=== PATIENT | male | born 1960 | race Caucasian/White ===

== ENCOUNTER 2021-12-17 10:29 | Emergency (ER) | payer BC, SELFPAY ==
[2021-12-17 10:38] VITALS: BP 90/59; PULSE 81; RESP 22; TEMP 36.2; O2SAT 94
[2021-12-17 10:41] VITALS: BP 90/59; PULSE 81; RESP 22; TEMP 36.2; O2SAT 94; BMI 31.8
[2021-12-17 11:00] VITALS: BP 92/57; PULSE 84; RESP 18; O2SAT 94
--- NOTE | 2021-12-17 11:10 | ED.GIBLEED ---
HPI - GI Bleed General Chief complaint: GI Bleed Stated complaint: Rectal bleeding Time Seen by Provider: 12/17/21 10:57 Source: patient and family Mode of arrival: ambulatory Limitations: no limitations History of Present Illness HPI Narrative: Christiano is a 61yo male with complicated PMH that presents with gross, bright red blood per rectum x 3 days, moderate volume. The patient also reports history of bloating and gas, but he denies nausea, vomiting, or known diarrhea. The patient recently reports episodes of constipation after which he noted the bloody stools. He is concerned of possible rectal tear. He has no history of hemorrhoids, anal fissure, or previous rectal tears. The patient is on blood thinners: aspirin and warfarin. The patient is able to tolerate PO intake. The patient reports eating has no affect on symptoms. The patient states that he has had no known sick contacts, no recent changes in diet, no travel. Patient denies fever, chills, or sweats. He reports no significant pain associated with bowel movements or in his abdomen. He denies burning with urination, urinary frequency, or flank pain. He denies chest pain or shortness of breath. He denies dizziness, weakness, or near-syncope. He has taken no medications prior to arrival. Related Data Home Medications Medication Instructions Recorded Confirmed allopurinol 100 mg tablet 100 mg PO DAILY 12/17/21 12/17/21 losartan 100 mg tablet (Cozaar) 100 mg PO DAILY 12/17/21 12/17/21 pregabalin 300 mg capsule 300 mg PO TID 12/17/21 12/17/21 Review of Systems Const: Denies: fever, chills, fatigue or malaise ENMT: Denies: throat pain, difficulty swallowing or vertigo Cardio: Denies: chest pain or shortness of breath with exertion Resp: Denies: shortness of breath or cough GI: Reports: bloating, rectal itching and blood in stool; Denies: abdominal pain, nausea, vomiting, heartburn, diarrhea, constipation, belching, excessive passing of gas, difficulty swallowing, feeling full early, change in bowel habits, painful bowel movements or rectal pain : Denies: painful urination, urinary frequency, urinary urgency or blood in urine Neuro: Denies: headache, dizziness or vertigo Endo: Denies: excessive urination or fatigue Sy/Lymph: Denies: easy bruising or easy bleeding Exam Const: Vital Signs, click to edit/add: Vital Signs - 24 hr 12/17/21 10:41 Temperature 97.1 F L Pulse Rate [Right Pulse Oximeter] 81 Respiratory Rate 22 Blood Pressure [Ri ght Upper Arm] 90/59 L Pulse Oximetry 94 Oxygen Delivery Me thod Room Air Documenting provider has reviewed patient's vital signs: yes Common normals: no apparent distress, oriented x3, no limitations, healthy appearing, alert and well nourished General appearance: cooperative, comfortable and well developed; not in distress Orientation/consciousness: Yes awake, Yes oriented to person, Yes oriented to place and Yes oriented to time HENMT: Common normals: normocephalic and head/scalp atraumatic Head and scalp: normocephalic and atraumatic Face and sinus: normal facial exam (limited by masking) Eye: Common normals: EOMs intact bilaterally General eye: normal appearance of both eyes Resp: Common normals: normal respiratory effort, no retractions, no use of accessory muscles and clear to auscultation bilaterally Effort & inspection: able to speak in complete sentences Auscultation: clear to auscultation bilaterally Cardio: Common normals: regular rate, regular rhythm, S1 normal heart sound, S2 normal heart sound, no gallops, no clicks and no murmurs Rate: regular rate Rhythm: regular rhythm Heart sounds: S1 normal and S2 normal GI: Common normals: Normal to inspection, nondistended, normoactive bowel sounds present, soft to palpation and non-tender Palpation: soft and tender Rectal Exam - Male: normal sphincter tone, prostate normal and heme positive stool gross blood; no hemorrhoids, no fecal impaction and no anal fissure(s) Extremity: Common normals: normal to inspection, full ROM and no clubbing, cyanosis or edema Neuro: Common normals: oriented x3, CN's II-XII intact bilaterally, moves all extremities, no focal motor deficits and no sensory deficits noted Sensorium/orientation: awake, alert, oriented to person, oriented to place and oriented to time Gait (neuro): normal gait Sensory exam: double simultaneous stimulation for sensation normal Motor exam: no movement abnormalities noted Psych: Common normals: mental status grossly normal, thought process normal and speech normal Appearance: grossly normal Attitude: calm Speech: normal speech Thought process: normal thought process Thought content: normal thought content Attention/concentration: attention grossly intact Memory/cognition: memory grossly intact Insight: insight good Judgement: judgment good Skin: Common normals: no rashes or lesions noted General skin exam: no rashes or lesions noted Course Course Hospital Course: Christiano presented to the ED and was evaluated for presence of GI bleeding/BRBPR. He had no additional symptoms value was in the emergency department. His laboratory studies were reviewed. Plan for diagnostic colonoscopy was discussed. Patient will call his primary care provider to ensure follow-up. If he is unable to be seen within the next week for diagnostic colonoscopy, he will have hemoglobin rechecked in the outpatient setting by his primary care physician. Reevaluation(s) Reevaluation #1: Patient reports no significant symptoms with in ED. Patient's vital signs have remained stable with hypotension noted, which is normal for patient. The results were discussed, and the patient verbalized understanding. Reasons for follow-up or return were discussed. Time: 12:29 Vital Signs Vital signs: Initial Vital Signs Temperature 97.1 F L 12/17/21 10:41 Temperature Source Temporal Artery Scan 12/17/21 10:41 Pulse Rate 81 12/17/21 10:41 Respiratory Rate 22 12/17/21 10:41 Blood Pressure 90/59 L 12/17/21 10:41 Blood Pressure Mean 69 12/17/21 10:41 Blood Pressure Position Sitting 12/17/21 10:41 Pulse Oximetry 94 12/17/21 10:41 Oxygen Delivery Method 12/17/21 10:41 Vital Signs Temperature 97.1 F L 12/17/21 10:41 Pulse Rate 81 12/17/21 10:41 Respiratory Rate 22 12/17/21 10:41 Blood Pressure 90/59 L 12/17/21 10:41 Pulse Oximetry 94 12/17/21 10:41 Oxygen Delivery Method 12/17/21 10:41 Temperature 97.1 F L 12/17/21 10:41 Pulse Rate 81 12/17/21 10:41 Respiratory Rate 22 12/17/21 10:41 Blood Pressure 90/59 L 12/17/21 10:41 Pulse Oximetry 94 12/17/21 10:41 Oxygen Delivery Method 12/17/21 10:41 MDM - GI Bleed MDM Narrative Medical decision making narrative: During the evaluation of this patient consider multiple differential diagnosis considerations. The life-threatening differential diagnoses considered include: mesenteric ischemia, bowel perforation, volvulus, and bowel obstruction. Other differential diagnoses include but are not limited to: inflammatory bowel disease, gastritis, GERD, diverticulitis, peptic ulcer disease, GI bleed, hemorrhoids, anal trauma/injury, as well as the other etiologies. Medical Records Attestation: I reviewed the patient's medical records. Lab Data Attestation: I reviewed the patient's lab results. Labs: Lab Results 12/17/21 12/17/21 12/17/21 Range/Units 11:17 11:35 11:35 WBC 8.05 (4.50-11.00) K/uL RBC 3.79 L (4.30-5.90) m/uL Hgb 11.4 L (13.5-17.5) gm/dL Hct 35.2 L (37.0-53.0) % MCV 93 (80-100) fL MCH 30 (26-34) pg MCHC 32 (32-36) gm/dL RDW Coeff of [place] 16.5 H (11.5-15.5) % Plt Count 181 (140-440) K/uL Neut % (Auto) 80.1 H (42.0-72.0) % Lymph % (Auto) 7.3 L (20-44) % Nuckolls % (Auto) 9.3 (0.0-11.0) % Eos % (Auto) 2.5 (0.0-7.0) % Baso % (Auto) 0.2 (0.0-3.0) % Neut # (Auto) 6.40 (1.7-7.0) K/uL Lymph # (Auto) 0.60 L (0.90-2.90) K/uL [place]olls # (Auto) 0.70 (0.00-0.90) K/UL Eos # (Auto) 0.20 (0.00-0.50) K/uL Baso # (Auto) 0.02 (0.00-0.30) K/uL Abs Immat Gran (auto) 0.05 (0.00-0.30) K/uL INR 2.63 H (0.91-1.10) APTT 39 H (23-33) Seconds Lactate 1.4 (0.5-1.9) mmol/L Discharge Plan Discharge Clinical Impression: Lower gastrointestinal hemorrhage Condition: Stable Instructions: Gastrointestinal Bleeding (ED) Additional Instructions: Thank you for choosing [facility] for your care today. Drink plenty of water and consider using electrolyte replacement like Gatorade or substitute. Add probiotic of choice - Culturelle, [facility], or Kefir - or substitute. Eat a bland diet and advance as tolerated. Diet should include bananas, rice, applesauce, and toast (BRAT diet) and other bland foods. Slowly advance diet as tolerated. Consider possible dietary restrictions regarding lactose and/or gluten for persistent symptoms. Consider the use of a daily coconut oil supplement, apple cider vinegar supplement, or magnesium oxide. You may consider MiraLax once daily per package directions until having regular stools. Decrease to 1/2 capful daily or every other day as needed for regular, soft bowel movements. Consider stimulant laxatives, if no success with previously discussed methods, stimulant laxative should not be used regularly to assist with bowel habits. Lastly, you may consider 4 oz of prune juice coffee mixed with 1 pass of butter warmed in the microwave to encourage bowels to move. If no bowel movement is noted within 3 days, return for re-evaluation and consideration of imaging or additional workup as indicated. You will need further evaluation and treatment including evaluation with general surgery. I recommend calling primary care for follow-up in the next 3-5 days for reevaluation of symptoms and to assist with scheduling diagnostic colonoscopy. If new or worsening symptoms develop or you have any concerns in the meantime, please call your primary care clinic or return to the ER for re-evaluation. Activity Level: Activity as Tolerated and No strenuous activity Discharge Diet: Heart Healthy (2 gm sodium, low fat) Diet Detail: Begin with bland, liquid diet with advance as tolerated. Prescriptions: No Action allopurinol 100 mg tablet 100 mg PO DAILY Label Comments: TAKE 1 TABLET BY MOUTH ONCE DAILY pregabalin 300 mg capsule 300 mg PO TID Label Comments: TAKE 1 CAPSULE BY MOUTH THREE TIMES DAILY losartan [Cozaar] 100 mg tablet 100 mg PO DAILY Follow Up/Referrals: Genny Casarez MD [Staff Physician] - Yair Benson MD [Staff Physician] - 7 Days (Needs diagnostic colonoscopy for GI bleeding) [facility]: [facility] Info Instructions
[2021-12-17 11:30] VITALS: BP 92/46; PULSE 81; RESP 22; TEMP 36.2; O2SAT 94
[2021-12-17 12:00] VITALS: BP 96/51; PULSE 81; RESP 22; O2SAT 94
[2021-12-17 12:03] LABS: Basophils Absolute Auto 0.02 K/uL (0.00-0.30); Basophils Percent Auto 0.2 % (0.0-3.0); Eosinophils Percent Auto 2.5 % (0.0-7.0); Hematocrit 35.2 % (37.0-53.0); Hemoglobin* 11.4 gm/dL (13.5-17.5); Immature Granulocytes Abs Auto 0.05 K/uL (0.00-0.30); Lymphocytes Percent Auto 7.3 % (20-44); Mean Corpuscular HGB Conc 32 gm/dL (32-36); Mean Corpuscular Hemoglobin 30 pg (26-34); Mean Corpuscular Volume 93 fL (80-100); Monocytes Percent Auto 9.3 % (0.0-11.0); Neutrophils Percent Auto 80.1 % (42.0-72.0); Platelet Count* 181 K/uL (140-440); RDW Coefficient of Variation % 16.5 % (11.5-15.5); Red Blood Count 3.79 m/uL (4.30-5.90); White Blood Count* 8.05 K/uL (4.50-11.00)
[2021-12-17 12:04] LABS: Slide Review Reflex No
[2021-12-17 12:09] LABS: Lactate* 1.4 mmol/L (0.5-1.9)
[2021-12-17 12:19] LABS: INR 2.63 (0.91-1.10); Partial Thromboplastin Time* 39 Seconds (23-33); Prothrombin Time 28.4 Seconds
[2021-12-17 12:26] LABS: Albumin* 3.7 g/dL (3.3-5.0); Chloride* 108 mmol/L (96-114)
[2021-12-17 12:27] LABS: Potassium* 4.7 mmol/L (3.6-5.1); Sodium* 140 mmol/L (135-149)
[2021-12-17 12:29] LABS: Alkaline Phosphatase* 92 U/L (40-150); Aspartate Amino Transferase* 26 U/L (12-35); Bilirubin Total* 0.8 mg/dL (0.1-1.5); Blood Urea Nitrogen* 51 mg/dL (7-30); Carbon Dioxide* 24 mmol/L (20-32); Est. Creatinine Clearance* 51.41; Estimated Glomerular Filt Rate 38 ml/min; Total Protein* 6.7 g/dL (6.0-8.3)
[2021-12-17 12:30] VITALS: BP 86/56; PULSE 81; RESP 22; O2SAT 94
[2021-12-17 12:30] LABS: Alanine Aminotransferase* 20 U/L (4-50); Calcium* 8.8 mg/dL (8.4-10.6); Glucose* 118 mg/dL (60-115)
== END 2021-12-17 12:52 | disposition home or self-care (01) ==
PROVIDERS: Emergency Provider Family Medicine; PCP Family Medicine
DX: K92.2 Gastrointestinal hemorrhage, unspecified (principal)
CPT/HCPCS: 36415; 80053; 83605; 85025; 85610; 85730; 99284

== ENCOUNTER 2022-04-21 09:31 | Outpatient (CLI) | payer BC, SELFPAY ==
[2022-04-21 11:55] LABS: Albumin* 4.7 g/dL (3.3-5.0); Chloride* 106 mmol/L (96-114); Potassium* 4.8 mmol/L (3.6-5.1); Sodium* 140 mmol/L (135-149)
[2022-04-21 11:59] LABS: Blood Urea Nitrogen* 47 mg/dL (7-30); Calcium* 9.3 mg/dL (8.4-10.6); Carbon Dioxide* 27 mmol/L (20-32); Glucose* 109 mg/dL (60-115)
[2022-04-21 12:02] LABS: C Reactive Protein* 0.7 mg/dL (0.5-1.0)
[2022-04-21 12:14] LABS: Creatinine* 2.1 mg/dL (0.5-1.5)
[2022-04-21 12:15] LABS: Estimated Glomerular Filt Rate 36 ml/min
[2022-04-22 21:39] LABS: Prealbumin 28.2 mg/dL (20.0-40.0)
== END 2022-04-21 09:32 | disposition home or self-care (01) ==
LOC: WOUND 09:31
PROVIDERS: PCP Family Medicine; Visit Provider Physician Assistant Surgical
DX: E11.621 Type 2 diabetes mellitus with foot ulcer (principal); L97.422 Non-pressure chronic ulcer of left heel and midfoot with fat layer exposed; S80.212A Abrasion, left knee, initial encounter
CPT/HCPCS: 11042; 36415; 80048; 82040; 83036; 84134; 85651; 86140; 99213

== ENCOUNTER 2022-05-05 09:42 | Outpatient (CLI) | payer BC, SELFPAY | END 2022-05-05 09:43 | disposition home or self-care (01) | LOC: WOUND 09:42 | PROVIDERS: PCP Family Medicine; Visit Provider Physician Assistant Surgical | DX: E11.621 Type 2 diabetes mellitus with foot ulcer (principal); L97.422 Non-pressure chronic ulcer of left heel and midfoot with fat layer exposed | CPT/HCPCS: 11043 ==

== ENCOUNTER 2022-05-12 09:49 | Outpatient (CLI) | payer BC, SELFPAY | END 2022-05-12 09:50 | disposition home or self-care (01) | LOC: WOUND 09:49 | PROVIDERS: PCP Family Medicine; Visit Provider Physician Assistant Surgical | DX: E11.621 Type 2 diabetes mellitus with foot ulcer (principal); L97.525 Non-pressure chronic ulcer of other part of left foot with muscle involvement without evidence of necrosis; L60.8 Other nail disorders | CPT/HCPCS: 11043; 11719 ==

== ENCOUNTER 2022-12-27 12:08 | Emergency (ER) | payer BC, SELFPAY ==
[2022-12-27] VITALS (106 sets, daily range): BP systolic 69–137; BP diastolic 37–99; PULSE 53–215; RESP 21–32; TEMP 36.7–37.1; O2SAT 82–100; BMI 43.9
--- NOTE | 2022-12-27 12:29 | ED_ITS ---
HPI - Fever General Time Seen by Provider: 12:29 Date Seen: 12/27/22 Chief Complaint: Fever Stated Complaint: Fever, fell Time Seen by Provider: 12/27/22 12:20 Source: patient, family and RN notes reviewed Mode of arrival: ambulatory Limitations: no limitations History of Present Illness HPI Narrative: Patient is a 62-year-old male coming in with reported fever of 102.9 taken tympanically at home. He called his stating he was not feeling good and felt feverish. Patient admits overnight he was having increasing difficulty breathing, could not wear CPAP. Did start to have a bit of a cough this morning. Does have some nausea but no vomiting. No abdominal pain, no diarrhea, no urinary symptoms. His was wondering possibly about COVID. He does have a history of congestive heart failure in they have been increasing his torsemide this past week. He is chronically short of breath but is much worse today. Is being seen in the wound clinic for an ulcer on his left foot, does not feel increased pain but admits he would not necessarily note it because of his peripheral neuropathy. Placed a bandage on the wound today and did not have concerns about it. Denies any chest discomfort, is not having any pain anywhere. MD elicited complaint: fever Treatments prior to arrival fever: none Related Data Home Medications Medication Instructions Recorded Confirmed allopurinol 100 mg tablet 100 mg PO DAILY 12/17/21 12/27/22 losartan 100 mg tablet (Cozaar) 100 mg PO DAILY 12/17/21 12/27/22 pregabalin 300 mg capsule 300 mg PO TID 12/17/21 12/27/22 amiodarone 200 mg tablet 200 mg PO DAILY 12/27/22 12/27/22 atorvastatin 40 mg tablet 40 mg PO DAILY 12/27/22 12/27/22 bupropion HCl 150 mg 24 hr tablet, 150 mg PO DAILY 12/27/22 12/27/22 extended release cefadroxil 500 mg capsule 500 mg PO BID 12/27/22 12/27/22 metoprolol succinate 100 mg 100 mg PO DAILY 12/27/22 12/27/22 tablet,extended release 24 hr metoprolol succinate 50 mg 50 mg PO DAILY 12/27/22 12/27/22 tablet,extended release 24 hr spironolactone 25 mg tablet 12.5 mg PO QAM 12/27/22 12/27/22 venlafaxine 75 mg capsule,extended 75 mg PO DAILY 12/27/22 12/27/22 release 24 hr warfarin 5 mg tablet PO 12/27/22 Previous Rx's Medication Instructions Recorded torsemide 20 mg tablet 80 mg (4 x 20 mg) PO QDAY #360 tabs 01/24/22 Allergies Allergy/AdvReac Type Severity Reaction Status Date / Time No Known Drug Allergies Allergy Verified 12/27/22 12:22 Review of Systems Status of ROS Reports: 6 or more systems reviewed and unremarkable except as noted in History and below [facility] Medical History CKD (chronic kidney disease) stage 3, GFR 30-59 ml/min ?N18.30 - Chronic kidney disease, stage 3 unspecified (ICD-10) Biventricular CHF (congestive heart failure) ?I50.82 - Biventricular heart failure (ICD-10) Pulmonary HTN ?I27.20 - Pulmonary hypertension, unspecified (ICD-10) MDD (major depressive disorder) ?F32.9 - Major depressive disorder, single episode, unspecified (ICD-10) ELVIS (obstructive sleep apnea) ?G47.33 - Obstructive sleep apnea (adult) (pediatric) (ICD-10) CAD (coronary artery disease) ?I25.10 - Atherosclerotic heart disease of [place] coronary artery without angina pectoris (ICD-10) Social History Smoking Status: Never smoker Do you use any of these nicotine containing products: None Second hand tobacco smoke exposure: No How often do you have a drink containing alcohol: never How often do you have six or more drinks on one occasion: Never AUDIT-C Alcohol total score: 0 Non-prescribed substance use: denies use service: No Exam Const Vital Signs, click to edit/add: Vital Signs - 24 hr 12/27/22 12:12 12/27/22 12:18 12/27/22 12:25 Temperature 98.8 F Pulse Rate Pulse Rate [Apical] 88 Pulse Rate [Right Pulse Oximeter] 82 88 88 Respiratory Rate 32 H Blood Pressure Blood Pressure [Right Upper Arm] 95/60 92/42 L 95/60 Pulse Oximetry 82 L Oxygen Delivery Method Room Air Oxygen Flow Rate 12/27/22 12:30 12/27/22 12:45 12/27/22 12:46 Temperature Pulse Rate Pulse Rate [Apical] Pulse Rate [Right Pulse Oximeter] 89 89 87 Respiratory Rate Blood Pressure Blood Pressure [Right Upper Arm] 81/43 L 81/43 L 78/40 L Pulse Oximetry Oxygen Delivery Method Oxygen Flow Rate 12/27/22 12:49 12/27/22 13:09 12/27/22 13:10 Temperature Pulse Rate 82 89 Pulse Rate [Apical] Pulse Rate [Right Pulse Oximeter] Respiratory Rate Blood Pressure 73/46 L Blood Pressure [Right Upper Arm] Pulse Oximetry 95 95 95 Oxygen Delivery Method Nasal Cannula Oxygen Flow Rate 4 12/27/22 13:15 12/27/22 13:17 12/27/22 13:30 Temperature Pulse Rate 101 H 95 102 H Pulse Rate [Apical] Pulse Rate [Right Pulse Oximeter] Respiratory Rate Blood Pressure 76/44 L Blood Pressure [Right Upper Arm] Pulse Oximetry 95 95 95 Oxygen Delivery Method Nasal Cannula Nasal Cannula Oxygen Flow Rate 4 4 12/27/22 13:38 12/27/22 13:39 12/27/22 13:42 Temperature 98.1 F Pulse Rate 53 L 83 94 Pulse Rate [Apical] Pulse Rate [Right Pulse Oximeter] Respiratory Rate Blood Pressure 95/49 L 122/75 Blood Pressure [Right Upper Arm] Pulse Oximetry 95 96 92 Oxygen Delivery Method Oxygen Flow Rate 12/27/22 13:45 12/27/22 13:47 12/27/22 13:52 Temperature Pulse Rate 108 H 95 96 Pulse Rate [Apical] Pulse Rate [Right Pulse Oximeter] Respiratory Rate 25 H 22 Blood Pressure 123/86 131/93 H Blood Pressure [Right Upper Arm] Pulse Oximetry 88 87 L 87 L Oxygen Delivery Method Oxygen Flow Rate 12/27/22 13:57 12/27/22 14:00 12/27/22 14:02 Temperature Pulse Rate 90 100 110 H Pulse Rate [Apical] Pulse Rate [Right Pulse Oximeter] Respiratory Rate 26 H 26 H 22 Blood Pressure 93/66 91/52 L Blood Pressure [Right Upper Arm] Pulse Oximetry 86 L 87 L 97 Oxygen Delivery Method Oxygen Flow Rate 12/27/22 14:07 12/27/22 14:12 12/27/22 14:15 Temperature Pulse Rate 103 H 100 104 H Pulse Rate [Apical] Pulse Rate [Right Pulse Oximeter] Respiratory Rate 25 H 26 H 25 H Blood Pressure 82/49 L 69/57 L 81/54 L Blood Pressure [Right Upper Arm] Pulse Oximetry 98 98 96 Oxygen Delivery Method Oxygen Flow Rate 12/27/22 14:16 12/27/22 14:21 12/27/22 14:22 Temperature Pulse Rate 104 H 141 H 96 Pulse Rate [Apical] Pulse Rate [Right Pulse Oximeter] Respiratory Rate 24 27 H 22 Blood Pressure 105/72 Blood Pressure [Right Upper Arm] Pulse Oximetry 96 89 97 Oxygen Delivery Method Oxygen Flow Rate 12/27/22 14:27 12/27/22 14:28 12/27/22 14:30 Temperature Pulse Rate 94 93 98 Pulse Rate [Apical] Pulse Rate [Right Pulse Oximeter] Respiratory Rate 27 H 27 H 22 Blood Pressure 119/86 Blood Pressure [Right Upper Arm] Pulse Oximetry 97 98 98 Oxygen Delivery Method Oxygen Flow Rate 12/27/22 14:32 12/27/22 14:36 12/27/22 14:37 Temperature Pulse Rate 95 93 96 Pulse Rate [Apical] Pulse Rate [Right Pulse Oximeter] Respiratory Rate 25 H 25 H 24 Blood Pressure 109/83 118/87 Blood Pressure [Right Upper Arm] Pulse Oximetry 98 98 99 Oxygen Delivery Method Oxygen Flow Rate 12/27/22 14:41 12/27/22 14:45 12/27/22 14:47 Temperature Pulse Rate 95 91 92 Pulse Rate [Apical] Pulse Rate [Right Pulse Oximeter] Respiratory Rate 23 24 21 Blood Pressure 133/83 119/77 Blood Pressure [Right Upper Arm] Pulse Oximetry 98 99 98 Oxygen Delivery Method OxyMask Oxygen Flow Rate 3 12/27/22 14:48 12/27/22 14:51 12/27/22 14:56 Temperature Pulse Rate 98 101 H 104 H Pulse Rate [Apical] Pulse Rate [Right Pulse Oximeter] Respiratory Rate 23 23 29 H Blood Pressure 113/75 109/80 Blood Pressure [Right Upper Arm] Pulse Oximetry 99 98 98 Oxygen Delivery Method Oxygen Flow Rate 12/27/22 15:00 12/27/22 15:01 12/27/22 15:07 Temperature Pulse Rate 103 H 100 100 Pulse Rate [Apical] Pulse Rate [Right Pulse Oximeter] Respiratory Rate 24 24 23 Blood Pressure 115/85 111/69 Blood Pressure [Right Upper Arm] Pulse Oximetry 98 99 96 Oxygen Delivery Method Oxygen Flow Rate 12/27/22 15:12 12/27/22 15:15 12/27/22 15:17 Temperature Pulse Rate 110 H 100 100 Pulse Rate [Apical] Pulse Rate [Right Pulse Oximeter] Respiratory Rate 21 27 H 24 Blood Pressure 128/89 113/72 Blood Pressure [Right Upper Arm] Pulse Oximetry 97 96 97 Oxygen Delivery Method Oxygen Flow Rate 12/27/22 15:32 12/27/22 15:34 12/27/22 15:36 Temperature Pulse Rate 85 100 110 H Pulse Rate [Apical] Pulse Rate [Right Pulse Oximeter] Respiratory Rate Blood Pressure 113/83 99/83 Blood Pressure [Right Upper Arm] Pulse Oximetry 93 95 95 Oxygen Delivery Method Oxygen Flow Rate 12/27/22 15:41 12/27/22 15:45 12/27/22 15:47 Temperature Pulse Rate 102 H 104 H 90 Pulse Rate [Apical] Pulse Rate [Right Pulse Oximeter] Respiratory Rate Blood Pressure 102/90 H 94/61 Blood Pressure [Right Upper Arm] Pulse Oximetry 96 95 96 Oxygen Delivery Method Oxygen Flow Rate 12/27/22 15:52 12/27/22 15:57 12/27/22 16:00 Temperature Pulse Rate 90 93 100 Pulse Rate [Apical] Pulse Rate [Right Pulse Oximeter] Respiratory Rate Blood Pressure 121/70 116/88 Blood Pressure [Right Upper Arm] Pulse Oximetry 97 97 97 Oxygen Delivery Method Oxygen Flow Rate 12/27/22 16:01 12/27/22 16:07 12/27/22 16:11 Temperature Pulse Rate 94 95 98 Pulse Rate [Apical] Pulse Rate [Right Pulse Oximeter] Respiratory Rate Blood Pressure 122/84 104/88 95/73 Blood Pressure [Right Upper Arm] Pulse Oximetry 96 97 96 Oxygen Delivery Method Oxygen Flow Rate 12/27/22 16:15 12/27/22 16:16 12/27/22 16:21 Temperature Pulse Rate 97 98 94 Pulse Rate [Apical] Pulse Rate [Right Pulse Oximeter] Respiratory Rate Blood Pressure 99/87 111/75 Blood Pressure [Right Upper Arm] Pulse Oximetry 97 98 97 Oxygen Delivery Method Oxygen Flow Rate 12/27/22 16:27 12/27/22 16:30 12/27/22 16:32 Temperature Pulse Rate 78 98 97 Pulse Rate [Apical] Pulse Rate [Right Pulse Oximeter] Respiratory Rate Blood Pressure 107/66 102/90 H Blood Pressure [Right Upper Arm] Pulse Oximetry 93 94 97 Oxygen Delivery Method Oxygen Flow Rate 12/27/22 16:37 12/27/22 16:42 12/27/22 16:45 Temperature Pulse Rate 99 101 H 103 H Pulse Rate [Apical] Pulse Rate [Right Pulse Oximeter] Respiratory Rate Blood Pressure 115/94 H 110/37 L Blood Pressure [Right Upper Arm] Pulse Oximetry 98 99 98 Oxygen Delivery Method Oxygen Flow Rate 12/27/22 16:47 Temperature Pulse Rate 99 Pulse Rate [Apical] Pulse Rate [Right Pulse Oximeter] Respiratory Rate Blood Pressure 126/55 L Blood Pressure [Right Upper Arm] Pulse Oximetry 98 Oxygen Delivery Method Oxygen Flow Rate 62-year-old male seen exam room 1, is on oxygen nasal cannula at this time, was 82% on arrival. Note patient is not on home oxygen. He looks pale, is diaphoretic. notes blood pressure usually is in the low 100 range, he is 92 systolic when I initially see him. Is able to speak in short phrases, does look mildly tachypneic. Sclera clear, conjugate gaze. Symmetrical facial function. Neck thick but no cervical adenopathy noted, difficult to see jugular venous distension. Maybe diminished breath sounds right base but otherwise clear without crackles, not coughing when I am with him. Heart sounds are distant, do not hear any murmur. Abdomen is protuberant but does not seem distended, nontender, no organomegaly. Has some chronic venous stasis changes lower extremities. Did visualize the wound along the left lateral plantar foot, no evidence of acute infection that I see at this time. Documenting provider has reviewed patient's vital signs: yes Course Course Hospital Course: With fever, did discuss with them obviously infectious etiology is our concern. COVID or other pulmonary infections including pneumonia are certainly foremost for considerations. Patient may meet criteria for sepsis, will initiate a L of IV fluids over 2 hours, he is cautioned that this could precipitate CHF and certainly needs to let us know if he has increasing sense of difficulty breathing or shortness of breath. Will start with a portable chest x-ray, full complement of labs including blood cultures. He will be watched closely. Will have him on cardiac monitoring and pulse oximetry, obtain baseline EKG as well. Reevaluation(s) Time of Reevaluation #1: 12:50 Reevaluation #1: Nursing staff reporting blood pressure into the 70s systolic. Will increase the normal saline to 1 L over 1 hour instead of 2 hours, very closely follow. Initiate antibiotics as soon as blood work has been done and attempt to get the portable chest x-ray done stat. Time of Reevaluation #2: 13:18 Reevaluation #2: Remains alert, no pain, but still hypotensive nearing completion of 1L NS over hour. Lung bases clear on auscultation, no increased shortness of breath. CXR does look to have fluid on my preliminary review. Lab here currently to get 2nd set of blood cultures. Will get Zosyn started, ordering vancomycin. Plan to initiate norepinephrine for blood pressure support early in this patient as he is at very high risk for fluid overload, have reviewed with he and his that I believe he has sepsis. He is on a low-dose prophylactic antibiotic to prevent infections as this is been a complication per his for him. We will contact [facility] ICU in see if they will accept. Will do a 250 mL normal saline bolus over the next hour with initiation of antibiotics and pressure support with norepinephrine. Time of Reevaluation #3: 13:54 Reevaluation #3: Nursing staff reports that systolic blood pressure went to 120 at initiation of the norepinephrine drip at lowest dose. Vancomycin will be in 500 mL and initiation of the 250 mL fluid bolus over the next hour is also ordered. We are going to stop the norepinephrine drip, hold the 250 mL fluid bolus and get his Zosyn and vancomycin in, continue to monitor him quite closely. Again, CHF and fluid overload is a significant concern with this patient. Awaiting callback from [facility] and further test results from here. Additional Reevaluation(s): 14:42 patient BP 133/83, the norepinephrine drip was started again in the interim for low BP's, able to titrate down under 0.05 starting dose and will continue to titrate for MAP, oxygen 3L oxymask as wasn't oxygenating well with NC, 98% with ET 34-35. Planning on obtaining CT chest while we await for [facility] to call back. Consultations Consultation #1: Spoke with swimming pool plasterer helper at [facility], she will be paging ICU physician. 14:18, called [facility] triage back and spoke with Del PATEL, the [facility] physician busy taking multiple calls for admission; they will try to return my call jay jay but cannot do so currently. 15:39, called [facility] triage back, they are going to re-page the [facility] physician, see if they even have a MICU bed at this point. Bella is the RN now on this case. 16:03, [facility] called back and was holding for them to page [facility]; at 16:06 RN came back on and the [facility] MD is changing, she will call back after she pages new MD. 16:[address] Flowers, reviewed case, she believes that the patient may be best served going to [facility] as he is seen there. Will review again with patient his request for [facility]. Did subsequently talk to patient and his ; they do indeed get seen locally here in [place] at [facility] and did see Dr. Harris recently because local MD wanted him to have local cardiology contact. They have had all major cares done at [facility] and would still like to go there. Did talk to Erica RN in triage at 16:27 letting her know that patient does want to be there, she will put in message to Bella RN working on the case to call me back. Did call again at 16:41 and was on hold until 16:46, spoke with Erica again, she will put another message into Bella whom has been working on other triages as well/bust. 16:48 Bella called back and paged Dr. Flowers whom stated that patient should go to [facility]. I reviewed with her that all major cares in this patient's recent life have been at [facility] and he wants to come there. They will work on bed placement. 17:[address] [facility] cardiac ICU. He will accept patient, understands at this time it is uncertain if home temperature was correct and this is sepsis or possibly CHF, possibly even both combined. With his CT showing possible pulmonary edema, do not feel that significant fluid is warranted, he is responding to low-dose norepinephrine very nicely. I think the best thing we can do for this patient is get him to a tertiary care center where there is advanced care. Time: 13:23 Vital Signs Vital signs: Initial Vital Signs Pulse Rate 82 12/27/22 12:12 Blood Pressure 95/60 12/27/22 12:12 Blood Pressure Mean 71 12/27/22 12:12 Blood Pressure Position Supine 12/27/22 12:12 Vital Signs Pulse Rate 82 12/27/22 12:12 Blood Pressure 95/60 12/27/22 12:12 Temperature 98.1 F 12/27/22 13:39 Pulse Rate 215 H 12/27/22 19:02 Respiratory Rate 24 12/27/22 15:17 Blood Pressure 131/82 12/27/22 19:02 Pulse Oximetry 97 12/27/22 19:02 Oxygen Delivery Method OxyMask 12/27/22 14:47 Oxygen Flow Rate 3 12/27/22 14:47 MDM - Fever Lab Data Attestation: I reviewed the patient's lab results. Labs: Lab Results 12/27/22 12/27/22 12/27/22 Range/Units 12:30 12:50 15:56 WBC 11.67 H (4.50-11.00) K/uL RBC 5.32 (4.30-5.90) m/uL Hgb 16.1 (13.5-17.5) gm/dL Hct 50.1 (37.0-53.0) % MCV 94 (80-100) fL MCH 30 (26-34) pg MCHC 32 (32-36) gm/dL RDW Coeff of [place] 17.0 H (11.5-15.5) % Plt Count 135 L (140-440) K/uL Neut % (Auto) 86.1 H (42.0-72.0) % Lymph % (Auto) 3.6 L (20-44) % [place] % (Auto) 8.7 (0.0-11.0) % Eos % (Auto) 0.4 (0.0-7.0) % Baso % (Auto) 0.3 (0.0-3.0) % Neut # (Auto) 10.00 H (1.7-7.0) K/uL Lymph # (Auto) 0.40 L (0.90-2.90) K/uL [place] # (Auto) 1.00 H (0.00-0.90) K/UL Eos # (Auto) 0.00 (0.00-0.50) K/uL Baso # (Auto) 0.00 (0.00-0.30) K/uL Abs Immat Gran (auto) 0.10 (0.00-0.30) K/uL Imm/Tot Granulo (auto) 0.9 % INR 3.10 H (0.91-1.10) VBG pH 7.410 (7.32-7.43) VBG pCO2 44 (40-50) mmHG VBG pO2 42.8 (25-47) mmHG VBG HCO3 28 (21-28) mmol/L Sodium 136 (135-149) mmol/L Potassium 5.2 H (3.6-5.1) mmol/L Chloride 100 (96-114) mmol/L Carbon Dioxide 27 (20-32) mmol/L Anion Gap 9 (7-15) mEq/L BUN 53 H (7-30) mg/dL Creatinine 2.7 H (0.5-1.5) mg/dL Estimated Creat Clear 37.61 Estimated GFR 26 ml/min Glucose 139 H (60-115) mg/dL Lactate 2.1 H (0.5-1.9) mmol/L Total Bilirubin 2.3 H (0.1-1.5) mg/dL AST 36 H (12-35) U/L ALT 22 (4-50) U/L Alkaline Phosphatase 102 (40-150) U/L C-Reactive Protein 1.2 H (0.5-1.0) mg/dL NT-Pro-B Natriuret Pep 3370 pg/mL Total Protein 8.0 (6.0-8.3) g/dL Albumin 4.4 (3.3-5.0) g/dL Procalcitonin 0.32 (<0.50) ng/mL SARS-CoV-2 (PCR) Negative SARS-CoV-2 (Negative) Influenza Type A (PCR) Negative PCR FLU A (Negative) Influenza Type B (PCR) Negative PCR FLU B (Negative) RSV (PCR) Negative PCR RSV (Negative) POC Troponin I 0.07 H 0.04 (0.01-0.04) ng/ml Imaging Data Chest x-ray: Attestation: I have reviewed the pertinent imaging results. Radiologist's impression: Patient: TOAN WILLOUGHBY Facility:?[facility] Patient ID:?[id number] Site Patient ID:?[id number]. Site :?[id number] Study:?XRay Chest PORTABLE-12/27/2022 1:14:12 PM Ordering Physician:?Kesha Meraz Final Report: INDICATION: Hypoxia. Hypotension. TECHNIQUE : AP portable chest. COMPARISON: February 09, 2021. FINDINGS: Postsurgical change from a sternotomy/aortic and mitral valve replacement. Cardiomegaly without overt failure. Pulmonary venous vascularity is within normal limits. Left-sided pacemaker/AICD unchanged. Minor blunting of the right costophrenic angle likely by trace pleural thickening. IMPRESSION: Cardiac enlargement without overt failure. Postsurgical change as described. Left-sided pacemaker/AICD unchanged. Dictated by Sj Mosqueda MD @ 12/27/2022 1:44:22 PM (Electronic Signature) CT scan - chest: Attestation: I have reviewed the pertinent imaging results. Radiologist's impression: Patient: TOAN WILLOUGHBY Facility:?[facility] Patient ID:?[id number] Site Patient ID:?[id number]. Site :?[id number] Study:?CT Chest w/o Contrast-12/27/2022 3:40:56 PM Ordering Physician:?Kesha Meraz Final Report: INDICATION: Fever, hypoxia. TECHNIQUE: CT chest without contrast. COMPARISON: Chest CT February 09, 2021. FINDINGS: Lungs and pleura: Similar scattered mosaic/ground-glass attenuation throughout the lungs. No suspicious nodules or focal infiltrates. Granulomatous disease. No pleural effusions, pleural thickening, or pneumothorax. Heart and vasculature: Cardiomegaly with coronary artery calcification. Prior aortic and mitral valve replacement. Ascending aortic graft. Thoracic aorta and pulmonary artery are normal in caliber. Lymph nodes/mediastinum: Some fluid in the esophagus which could predispose to aspiration. Persistent mildly prominent mediastinal and right hilar lymph nodes. Chest wall: Left chest wall pacemaking device. No masses. Upper abdomen: No significant findings. Bones: Degenerative changes. No acute fractures. IMPRESSION: Similar scattered mosaic/ground-glass attenuation throughout the lungs. This is nonspecific but could suggest small vessel/airway disease or mild pulmonary edema. No focal consolidations. Severe cardiomegaly and coronary artery calcifications. No significant interval change when compared to prior study. Please note that all CT scans at this facility use dose modulation, iterative reconstruction, and/or weight-based dosing when appropriate to reduce radiation dose to as low as reasonably achievable. Dictated by Devon Bernardo MD @ 12/27/2022 4:34:51 PM (Electronic Signature) ECG Data Attestation: I personally reviewed and interpreted this ECG as follows: (Ventricular paced rhythm, 90 beats per minute.) ECG interpretation date: 12/27/22 ECG interpretation time: 12:52 Discharge Plan Discharge Clinical Impression: Sepsis associated hypotension, Congestive heart failure Patient Disposition: [facility] Discharge Location: [facility] Prescriptions: No Action allopurinol 100 mg tablet 100 mg PO DAILY Patient Comments: TAKE 1 TABLET BY MOUTH ONCE DAILY pregabalin 300 mg capsule 300 mg PO TID Patient Comments: TAKE 1 CAPSULE BY MOUTH THREE TIMES DAILY losartan [Cozaar] 100 mg tablet 100 mg PO DAILY atorvastatin 40 mg tablet 40 mg PO DAILY venlafaxine 75 mg capsule,extended release 24hr 75 mg PO DAILY amiodarone 200 mg tablet 200 mg PO DAILY metoprolol succinate 50 mg tablet extended release 24 hr 50 mg PO DAILY metoprolol succinate 100 mg tablet extended release 24 hr 100 mg PO DAILY spironolactone 25 mg tablet 12.5 mg PO QAM cefadroxil 500 mg capsule 500 mg PO BID warfarin 5 mg tablet PO bupropion HCl 150 mg tablet extended release 24 hr 150 mg PO DAILY torsemide 20 mg tablet 80 mg PO QDAY Qty: 360 0RF Stand Alone Forms: MyHealth Info Instructions
--- NOTE | 2022-12-27 12:52 | CRLHL7_ITS ---
For Patients: As a result of the Cures Act, medical imaging exams and procedure reports are released immediately into your electronic medical record. You may view this report before your referring provider. If you have questions, please contact your health care provider. INDICATION: Hypoxia. Hypotension. TECHNIQUE : AP portable chest. COMPARISON: February 09, 2021. FINDINGS: Postsurgical change from a sternotomy/aortic and mitral valve replacement. Cardiomegaly without overt failure. Pulmonary venous vascularity is within normal limits. Left-sided pacemaker/AICD unchanged. Minor blunting of the right costophrenic angle likely by trace pleural thickening. IMPRESSION: Cardiac enlargement without overt failure. Postsurgical change as described. Left-sided pacemaker/AICD unchanged. Dictated by Sj Mosqueda MD @ 12/27/2022 1:44:22 PM (Electronically Signed)
[2022-12-27 13:17] LABS: Troponin, Point-of-Care* 0.07 ng/ml (0.01-0.04)
[2022-12-27 13:23] LABS: HCO3 VBG 28 mmol/L (21-28); Lactate* 2.1 mmol/L (0.5-1.9); PCO2 VBG 44 mmHG (40-50); PO2 VBG 42.8 mmHG (25-47)
[2022-12-27] MEDS: 0.9 % SODIUM CHLORIDE 1000 ml 1,000 ML IV (13:29)
[2022-12-27] MEDS: PIPERACILLIN/TAZOBACTAM 3.375 GM in 0.9 % SODIUM CHLORIDE Mini-bag 100 ML IVPB (13:30)
[2022-12-27 13:32] LABS: Albumin* 4.4 g/dL (3.3-5.0); Chloride* 100 mmol/L (96-114); Sodium* 136 mmol/L (135-149)
[2022-12-27 13:33] LABS: Basophils Percent Auto 0.3 % (0.0-3.0); Eosinophils Percent Auto 0.4 % (0.0-7.0); Hematocrit 50.1 % (37.0-53.0); Hemoglobin* 16.1 gm/dL (13.5-17.5); Immature Granulocytes Pct Auto 0.9 %; Lymphocytes Percent Auto 3.6 % (20-44); Mean Corpuscular HGB Conc 32 gm/dL (32-36); Mean Corpuscular Hemoglobin 30 pg (26-34); Mean Corpuscular Volume 94 fL (80-100); Monocytes Percent Auto 8.7 % (0.0-11.0); Neutrophils Percent Auto 86.1 % (42.0-72.0); Platelet Count* 135 K/uL (140-440); Potassium* 5.2 mmol/L (3.6-5.1); Red Blood Count 5.32 m/uL (4.30-5.90); White Blood Count* 11.67 K/uL (4.50-11.00)
[2022-12-27 13:34] LABS: Prothrombin Time 33.4 Seconds
[2022-12-27 13:35] LABS: Creatinine* 2.7 mg/dL (0.5-1.5); Est. Creatinine Clearance* 37.61; Estimated Glomerular Filt Rate 26 ml/min
--- NOTE | 2022-12-27 13:35 | ED.NURSE ---
Norepi started @ 1335--- 0.1mvg/kg -- 64.5ml/hour
[2022-12-27 13:36] LABS: Alanine Aminotransferase* 22 U/L (4-50); Alkaline Phosphatase* 102 U/L (40-150); Anion Gap 9 mEq/L (7-15); Aspartate Amino Transferase* 36 U/L (12-35); Bilirubin Total* 2.3 mg/dL (0.1-1.5); Blood Urea Nitrogen* 53 mg/dL (7-30); Carbon Dioxide* 27 mmol/L (20-32); Glucose* 139 mg/dL (60-115); Slide Review Reflex No
[2022-12-27 13:38] LABS: C Reactive Protein* 1.2 mg/dL (0.5-1.0)
[2022-12-27 13:48] LABS: NT Pro B Type NatriureticPept* 3370 pg/mL
[2022-12-27 13:53] LABS: Procalcitonin* 0.32 ng/mL (<0.50)
[2022-12-27 14:29] LABS: PCR FLU A Negative PCR FLU A (Negative); PCR FLU B Negative PCR FLU B (Negative); PCR RSV Negative PCR RSV (Negative); SARS PCR* Negative SARS-CoV-2 (Negative)
--- NOTE | 2022-12-27 15:12 | CRLHL7_ITS ---
For Patients: As a result of the Cures Act, medical imaging exams and procedure reports are released immediately into your electronic medical record. You may view this report before your referring provider. If you have questions, please contact your health care provider. INDICATION: Fever, hypoxia. TECHNIQUE: CT chest without contrast. COMPARISON: Chest CT February 09, 2021. FINDINGS: Lungs and pleura: Similar scattered mosaic/ground-glass attenuation throughout the lungs. No suspicious nodules or focal infiltrates. Granulomatous disease. No pleural effusions, pleural thickening, or pneumothorax. Heart and vasculature: Cardiomegaly with coronary artery calcification. Prior aortic and mitral valve replacement. Ascending aortic graft. Thoracic aorta and pulmonary artery are normal in caliber. Lymph nodes/mediastinum: Some fluid in the esophagus which could predispose to aspiration. Persistent mildly prominent mediastinal and right hilar lymph nodes. Chest wall: Left chest wall pacemaking device. No masses. Upper abdomen: No significant findings. Bones: Degenerative changes. No acute fractures. IMPRESSION: Similar scattered mosaic/ground-glass attenuation throughout the lungs. This is nonspecific but could suggest small vessel/airway disease or mild pulmonary edema. No focal consolidations. Severe cardiomegaly and coronary artery calcifications. No significant interval change when compared to prior study. Please note that all CT scans at this facility use dose modulation, iterative reconstruction, and/or weight-based dosing when appropriate to reduce radiation dose to as low as reasonably achievable. Dictated by Devon Bernardo MD @ 12/27/2022 4:34:51 PM (Electronically Signed)
[2022-12-27] MEDS: ACETAMINOPHEN 500 MG TABLET 1000 MG PO (15:45)
[2022-12-27 16:08] LABS: Troponin, Point-of-Care* 0.04 ng/ml (0.01-0.04)
[2022-12-27] MEDS: 0.9 % SODIUM CHLORIDE 1000 ml 1,000 ML 75 ML IV (16:54)
--- NOTE | 2022-12-27 17:39 | ED.NURSE ---
Report called to [facility] RN at [phone]. He will be going to [place] [id number]. Bed assignment upon arrival.
--- NOTE | 2022-12-28 05:48 | ED.NURSE ---
Called [facility] and updated on patients blood cultures being positive. stated they did not need results faxed but would call back if they needed more info.
[2022-12-29 19:36] LABS: Calcium* 9.6 mg/dL (8.4-10.6)
== END 2022-12-27 19:24 | disposition short-term general hospital (02) ==
PROVIDERS: Emergency Provider Family Medicine; PCP Family Medicine
DX: I95.9 Hypotension, unspecified (principal); A41.9 Sepsis, unspecified organism; I50.9 Heart failure, unspecified
CPT/HCPCS: 36415; 71045; 71250; 80053; 81001; 82803; 83605; 83880; 84145; 84484; 85025; 85610; 86140; 87040; 87186; 87631; 93005; 94761; 99285; 99291; A9270; J2543; J3370; J7030; J7120

== ENCOUNTER 2022-12-27 19:05 | Outpatient (CLI) | payer BC, SELFPAY | END 2022-12-27 19:06 | disposition home or self-care (01) | LOC: AMB 12-30 19:51 | PROVIDERS: PCP Family Medicine; Visit Provider Family Medicine | DX: R50.9 Fever, unspecified (principal); A41.9 Sepsis, unspecified organism; R09.02 Hypoxemia; I95.9 Hypotension, unspecified; I50.32 Chronic diastolic (congestive) heart failure | CPT/HCPCS: A0425; A0434 ==

== ENCOUNTER 2023-01-06 13:16 | Outpatient (CLI) | payer BC, SELFPAY ==
[2023-01-06 14:19] LABS: INR 2.39 (0.91-1.10); Prothrombin Time 27.3 Seconds
== END 2023-01-06 13:17 | disposition home or self-care (01) ==
LOC: LAB 13:19
PROVIDERS: PCP Family Medicine
DX: Z79.01 Long term (current) use of anticoagulants (principal)
CPT/HCPCS: 36415; 85610

== ENCOUNTER 2023-01-07 11:37 | Outpatient (CLI) | payer BC, SELFPAY ==
[2023-01-07 12:17] LABS: INR 2.38 (0.91-1.10); Prothrombin Time 27.1 Seconds
== END 2023-01-07 11:38 | disposition home or self-care (01) ==
LOC: LAB 11:39
PROVIDERS: PCP Family Medicine
DX: Z79.01 Long term (current) use of anticoagulants (principal)
CPT/HCPCS: 36415; 85610

== ENCOUNTER 2023-02-14 10:53 | Emergency (ER) | payer BC, SELFPAY ==
[2023-02-14] VITALS (82 sets, daily range): BP systolic 76–148; BP diastolic 40–106; PULSE 49–140; RESP 26–40; TEMP 36.4–38.3; O2SAT 85–98; BMI 41.6
--- NOTE | 2023-02-14 11:24 | ED_ITS ---
Inadvertently I was added to the patient care document but I was not involved this patient's care. HPI - General Adult General Chief complaint: Fever <Serge Carpenter MD - Last Filed: 02/23/23 08:07> Stated complaint: fever <Serge Carpenter MD - Last Filed: 02/23/23 08:07> Time Seen by Provider: 02/14/23 11:23 <Serge Carpenter MD - Last Filed: 02/23/23 08:07> History of Present Illness HPI narrative: c/o fever since 0300 today, with chills and body aches. no known sick contacts, extensive cardiac hx. 62-year-old man presenting to the emergency department with shakes and increasing shortness of breath as of this morning. Spouse who accompanies him here said that he had been more ?lethargic? over the last couple of days. Extensive and complicated history of heart failure and with history of biventricular heart failure and pacemaker placement and chronic kidney disease. Sleep apnea and uses CPAP. Is not experiencing any pain at this time. Does not answer much questions in setting of shaking and weakness. Seen in this department about 6 weeks ago transferred to [facility] with hypotension secondary to sepsis and exacerbation of congestive heart failure. Discharged on the 05 of January with PICC line and 10 days pipe racillin/tazobactam then transferred to [facility]. Does not sound as though source was clearly identified. Is noted on arrival here to have oxygen saturations 85% and less and tachycardic with temperature of a 100.4?. <Serge Carpenter MD - Last Filed: 02/23/23 08:07> Related Data Home medications: Home Medications Medication Instructions Recorded Confirmed allopurinol 100 mg tablet 100 mg PO DAILY 12/17/21 02/14/23 losartan 100 mg tablet (Cozaar) 100 mg PO DAILY 12/17/21 02/14/23 pregabalin 300 mg capsule 300 mg PO TID 12/17/21 02/14/23 amiodarone 200 mg tablet 200 mg PO DAILY 12/27/22 02/14/23 atorvastatin 40 mg tablet 40 mg PO DAILY 12/27/22 02/14/23 bupropion HCl 150 mg 24 hr tablet, 150 mg PO DAILY 12/27/22 02/14/23 extended release cefadroxil 500 mg capsule 500 mg PO BID 12/27/22 02/14/23 metoprolol succinate 100 mg 100 mg PO DAILY 12/27/22 02/14/23 tablet,extended release 24 hr metoprolol succinate 50 mg 50 mg PO DAILY 12/27/22 02/14/23 tablet,extended release 24 hr spironolactone 25 mg tablet 12.5 mg PO QAM 12/27/22 02/14/23 venlafaxine 75 mg capsule,extended 75 mg PO DAILY 12/27/22 02/14/23 release 24 hr warfarin 5 mg tablet 1 mg PO 12/27/22 Previous Rx's Medication Instructions Recorded torsemide 20 mg tablet 80 mg (4 x 20 mg) PO QDAY #360 tabs 01/24/22 <Serge Carpenter MD - Last Filed: 02/23/23 08:07> Allergies/adverse reactions: Allergies Allergy/AdvReac Type Severity Reaction Status Date / Time No Known Drug Allergies Allergy Verified 02/14/23 11:18 <Serge Carpenter MD - Last Filed: 02/23/23 08:07> Review of Systems Status of ROS: Reports: unobtainable due to medical condition <Serge Carpenter MD - Last Filed: 02/23/23 08:07> [facility] Medical History: Medical History CKD (chronic kidney disease) stage 3, GFR 30-59 ml/min ?N18.30 - Chronic kidney disease, stage 3 unspecified (ICD-10) Biventricular CHF (congestive heart failure) ?I50.82 - Biventricular heart failure (ICD-10) Pulmonary HTN ?I27.20 - Pulmonary hypertension, unspecified (ICD-10) MDD (major depressive disorder) ?F32.9 - Major depressive disorder, single episode, unspecified (ICD-10) ELVIS (obstructive sleep apnea) ?G47.33 - Obstructive sleep apnea (adult) (pediatric) (ICD-10) CAD (coronary artery disease) ?I25.10 - Atherosclerotic heart disease of [place] coronary artery without angina pectoris (ICD-10) <Serge Carpenter MD - Last Filed: 02/23/23 08:07> Social History: Social History Smoking Status: Never smoker Do you use any of these nicotine containing products: None Second hand tobacco smoke exposure: No How often do you have a drink containing alcohol: never How often do you have six or more drinks on one occasion: Never AUDIT-C Alcohol total score: 0 Non-prescribed substance use: denies use service: No <Serge Carpenter MD - Last Filed: 02/23/23 08:07> Exam Narrative: Exam Narrative: Large man. Skin is darkly tanned. He has pulse oximetry monitoring currently on a head band. He is hunched over in the bed. gcs 14. Does not raise his head to look at me but does mutter vague responses to questioning or sometimes not. Unable to really cooperate with exam due to lack of strength. 2 person-assist to sit up auscultate his lungs. Has been placed on OxyMask. Labored and tachypneic. Lungs with breath sounds throughout. Questionable effort though I am do not hear crepitus. Heart is tachycardic and distant. Abdomen is large protuberant nontender. Lower extremities do not have marked edema. There are prominent venous varicosities in the anterior shins bilaterally. Nail beds are blue on his hands <Serge Carpenter MD - Last Filed: 02/23/23 08:07> Const: Vital Signs, click to edit/add: Vital Signs - 24 hr 02/14/23 11:03 02/14/23 11:39 02/14/23 11:46 Temperature 100.4 F H Pulse Rate 117 H Pulse Rate [Pulse Oximeter] 114 H Respiratory Rate 40 H Blood Pressure Blood Pressure [Le ft Upper Arm] 144/106 H Pulse Oximetry 85 L 92 94 Oxygen Delivery Me thod Room Air Nasal Can nula OxyMask High Flow Nasal Ca nnula Oxygen Flow Rate 1 Fraction of Inspir ed Oxygen 02/14/23 11:47 02/14/23 11:56 02/14/23 12:00 Temperature Pulse Rate 115 H 114 H Pulse Rate [Pulse Oximeter] Respiratory Rate Blood Pressure 148/78 H Blood Pressure [Le ft Upper Arm] Pulse Oximetry 94 92 Oxygen Delivery Me thod High Flow Nasal Ca nnula High Flow Nasal Ca nnula Oxygen Flow Rate 30 Fraction of Inspir ed Oxygen 50 02/14/23 12:02 02/14/23 12:15 02/14/23 12:16 Temperature Pulse Rate 114 H 106 H 100 Pulse Rate [Pulse Oximeter] Respiratory Rate Blood Pressure 113/67 120/65 Blood Pressure [Le ft Upper Arm] Pulse Oximetry 91 98 97 Oxygen Delivery Me thod High Flow Nasal Ca nnula CPAP CPAP Oxygen Flow Rate Fraction of Inspir ed Oxygen 30 30 02/14/23 12:17 02/14/23 12:17 02/14/23 12:30 Temperature Pulse Rate 100 92 Pulse Rate [Pulse Oximeter] Respiratory Rate 40 H Blood Pressure Blood Pressure [Le ft Upper Arm] Pulse Oximetry 95 97 95 Oxygen Delivery Me thod CPAP Oxygen Flow Rate Fraction of Inspir ed Oxygen 02/14/23 12:31 02/14/23 12:42 02/14/23 12:45 Temperature Pulse Rate 84 80 Pulse Rate [Pulse Oximeter] Respiratory Rate Blood Pressure 125/100 H Blood Pressure [Le ft Upper Arm] Pulse Oximetry 95 94 Oxygen Delivery Me thod Oxygen Flow Rate Fraction of Inspir ed Oxygen 30 02/14/23 12:47 02/14/23 13:00 02/14/23 13:02 Temperature Pulse Rate 81 94 89 Pulse Rate [Pulse Oximeter] Respiratory Rate Blood Pressure 105/58 L 95/51 L Blood Pressure [Le ft Upper Arm] Pulse Oximetry 94 93 93 Oxygen Delivery Me thod Oxygen Flow Rate Fraction of Inspir ed Oxygen 02/14/23 13:15 02/14/23 13:16 02/14/23 13:17 Temperature Pulse Rate 86 93 87 Pulse Rate [Pulse Oximeter] Respiratory Rate Blood Pressure 109/58 L Blood Pressure [Le ft Upper Arm] Pulse Oximetry 97 95 96 Oxygen Delivery Me thod CPAP Oxygen Flow Rate Fraction of Inspir ed Oxygen 30 02/14/23 13:29 02/14/23 13:30 02/14/23 13:32 Temperature 101.0 F H Pulse Rate 88 88 Pulse Rate [Pulse Oximeter] Respiratory Rate Blood Pressure 80/53 L Blood Pressure [Le ft Upper Arm] Pulse Oximetry 97 98 Oxygen Delivery Me thod CPAP CPAP Oxygen Flow Rate Fraction of Inspir ed Oxygen 30 30 02/14/23 13:34 02/14/23 13:45 02/14/23 14:00 Temperature Pulse Rate 83 85 84 Pulse Rate [Pulse Oximeter] Respiratory Rate Blood Pressure 95/60 Blood Pressure [Le ft Upper Arm] Pulse Oximetry 96 95 96 Oxygen Delivery Me thod CPAP CPAP CPAP Oxygen Flow Rate Fraction of Inspir ed Oxygen 30 30 30 02/14/23 14:07 02/14/23 14:15 02/14/23 14:17 Temperature Pulse Rate 93 86 90 Pulse Rate [Pulse Oximeter] Respiratory Rate Blood Pressure 98/57 L 84/49 L Blood Pressure [Le ft Upper Arm] Pulse Oximetry 95 94 95 Oxygen Delivery Me thod CPAP CPAP CPAP Oxygen Flow Rate Fraction of Inspir ed Oxygen 30 30 30 02/14/23 14:19 02/14/23 14:23 02/14/23 14:24 Temperature Pulse Rate 85 88 88 Pulse Rate [Pulse Oximeter] Respiratory Rate Blood Pressure 86/40 L 92/43 L Blood Pressure [Le ft Upper Arm] Pulse Oximetry 95 96 96 Oxygen Delivery Me thod CPAP CPAP CPAP Oxygen Flow Rate Fraction of Inspir ed Oxygen 30 30 30 02/14/23 14:30 02/14/23 14:31 02/14/23 14:45 Temperature Pulse Rate 78 88 83 Pulse Rate [Pulse Oximeter] Respiratory Rate Blood Pressure 76/48 L Blood Pressure [Le ft Upper Arm] Pulse Oximetry 93 95 95 Oxygen Delivery Me thod CPAP CPAP CPAP Oxygen Flow Rate Fraction of Inspir ed Oxygen 30 30 30 02/14/23 14:48 02/14/23 14:51 02/14/23 14:52 Temperature Pulse Rate 49 L 55 L 88 Pulse Rate [Pulse Oximeter] Respiratory Rate Blood Pressure 105/61 88/77 L Blood Pressure [Le ft Upper Arm] Pulse Oximetry 96 95 95 Oxygen Delivery Me thod CPAP CPAP CPAP Oxygen Flow Rate Fraction of Inspir ed Oxygen 30 30 30 02/14/23 14:56 02/14/23 15:01 02/14/23 15:02 Temperature Pulse Rate 50 L 51 L 51 L Pulse Rate [Pulse Oximeter] Respiratory Rate Blood Pressure 112/92 H 112/64 Blood Pressure [Le ft Upper Arm] Pulse Oximetry 95 95 95 Oxygen Delivery Me thod CPAP CPAP CPAP Oxygen Flow Rate Fraction of Inspir ed Oxygen 30 30 30 02/14/23 15:07 02/14/23 15:14 02/14/23 15:15 Temperature 99.1 F Pulse Rate 106 H 51 L Pulse Rate [Pulse Oximeter] Respiratory Rate 26 H Blood Pressure 98/83 120/91 H Blood Pressure [Le ft Upper Arm] Pulse Oximetry 96 96 Oxygen Delivery Me thod CPAP CPAP Oxygen Flow Rate Fraction of Inspir ed Oxygen 30 30 02/14/23 15:16 02/14/23 15:17 02/14/23 15:19 Temperature Pulse Rate 66 71 117 H Pulse Rate [Pulse Oximeter] Respiratory Rate Blood Pressure 142/83 H Blood Pressure [Le ft Upper Arm] Pulse Oximetry 96 94 96 Oxygen Delivery Me thod CPAP CPAP CPAP Oxygen Flow Rate Fraction of Inspir ed Oxygen 30 30 30 02/14/23 15:21 02/14/23 15:22 02/14/23 15:23 Temperature 99.1 F Pulse Rate 140 H 90 Pulse Rate [Pulse Oximeter] Respiratory Rate Blood Pressure 140/81 H Blood Pressure [Le ft Upper Arm] Pulse Oximetry 95 95 Oxygen Delivery Me thod CPAP CPAP Oxygen Flow Rate Fraction of Inspir ed Oxygen 30 30 02/14/23 15:27 02/14/23 15:30 02/14/23 15:32 Temperature Pulse Rate 90 80 53 L Pulse Rate [Pulse Oximeter] Respiratory Rate Blood Pressure 138/80 104/76 Blood Pressure [Le ft Upper Arm] Pulse Oximetry 96 96 97 Oxygen Delivery Me thod CPAP CPAP CPAP Oxygen Flow Rate Fraction of Inspir ed Oxygen 30 30 30 02/14/23 15:36 02/14/23 15:42 02/14/23 15:45 Temperature Pulse Rate 91 83 84 Pulse Rate [Pulse Oximeter] Respiratory Rate Blood Pressure 112/59 L 105/68 Blood Pressure [Le ft Upper Arm] Pulse Oximetry 96 97 96 Oxygen Delivery Me thod CPAP CPAP CPAP Oxygen Flow Rate Fraction of Inspir ed Oxygen 30 30 30 02/14/23 15:46 02/14/23 15:55 02/14/23 15:57 Temperature Pulse Rate 85 82 83 Pulse Rate [Pulse Oximeter] Respiratory Rate Blood Pressure 106/67 99/58 L 102/57 L Blood Pressure [Le ft Upper Arm] Pulse Oximetry 96 97 98 Oxygen Delivery Me thod CPAP CPAP CPAP Oxygen Flow Rate Fraction of Inspir ed Oxygen 30 30 30 02/14/23 16:00 02/14/23 16:02 02/14/23 16:07 Temperature Pulse Rate 85 82 82 Pulse Rate [Pulse Oximeter] Respiratory Rate Blood Pressure 104/65 106/62 Blood Pressure [Le ft Upper Arm] Pulse Oximetry 97 98 96 Oxygen Delivery Me thod CPAP CPAP CPAP Oxygen Flow Rate Fraction of Inspir ed Oxygen 30 30 30 02/14/23 16:12 02/14/23 16:16 02/14/23 16:19 Temperature 97.5 F L Pulse Rate 86 86 Pulse Rate [Pulse Oximeter] Respiratory Rate 28 H Blood Pressure 102/66 Blood Pressure [Le ft Upper Arm] Pulse Oximetry 97 96 96 Oxygen Delivery Me thod CPAP CPAP CPAP Oxygen Flow Rate Fraction of Inspir ed Oxygen 30 30 02/14/23 16:22 02/14/23 16:30 02/14/23 16:31 Temperature Pulse Rate 86 83 83 Pulse Rate [Pulse Oximeter] Respiratory Rate Blood Pressure 107/68 109/65 Blood Pressure [Le ft Upper Arm] Pulse Oximetry 96 96 94 Oxygen Delivery Me thod CPAP CPAP CPAP Oxygen Flow Rate Fraction of Inspir ed Oxygen 30 30 30 <Serge Carpenter MD - Last Filed: 02/23/23 08:07> Vital Signs, click to edit/add: Vital Signs - 24 hr 02/14/23 11:03 02/14/23 11:39 02/14/23 11:46 Temperature 100.4 F H Pulse Rate 117 H Pulse Rate [Pulse Oximeter] 114 H Respiratory Rate 40 H Blood Pressure Blood Pressure [Le ft Upper Arm] 144/106 H Pulse Oximetry 85 L 92 94 Oxygen Delivery Me thod Room Air Nasal Can nula OxyMask High Flow Nasal Ca nnula Oxygen Flow Rate 1 Fraction of Inspir ed Oxygen 02/14/23 11:47 02/14/23 11:56 02/14/23 12:00 Temperature Pulse Rate 115 H 114 H Pulse Rate [Pulse Oximeter] Respiratory Rate Blood Pressure 148/78 H Blood Pressure [Le ft Upper Arm] Pulse Oximetry 94 92 Oxygen Delivery Me thod High Flow Nasal Ca nnula High Flow Nasal Ca nnula Oxygen Flow Rate 30 Fraction of Inspir ed Oxygen 50 02/14/23 12:02 02/14/23 12:15 02/14/23 12:16 Temperature Pulse Rate 114 H 106 H 100 Pulse Rate [Pulse Oximeter] Respiratory Rate Blood Pressure 113/67 120/65 Blood Pressure [Le ft Upper Arm] Pulse Oximetry 91 98 97 Oxygen Delivery Me thod High Flow Nasal Ca nnula CPAP CPAP Oxygen Flow Rate Fraction of Inspir ed Oxygen 30 30 02/14/23 12:17 02/14/23 12:17 02/14/23 12:30 Temperature Pulse Rate 100 92 Pulse Rate [Pulse Oximeter] Respiratory Rate 40 H Blood Pressure Blood Pressure [Le ft Upper Arm] Pulse Oximetry 95 97 95 Oxygen Delivery Me thod CPAP Oxygen Flow Rate Fraction of Inspir ed Oxygen 02/14/23 12:31 02/14/23 12:42 02/14/23 12:45 Temperature Pulse Rate 84 80 Pulse Rate [Pulse Oximeter] Respiratory Rate Blood Pressure 125/100 H Blood Pressure [Le ft Upper Arm] Pulse Oximetry 95 94 Oxygen Delivery Me thod Oxygen Flow Rate Fraction of Inspir ed Oxygen 30 02/14/23 12:47 02/14/23 13:00 02/14/23 13:02 Temperature Pulse Rate 81 94 89 Pulse Rate [Pulse Oximeter] Respiratory Rate Blood Pressure 105/58 L 95/51 L Blood Pressure [Le ft Upper Arm] Pulse Oximetry 94 93 93 Oxygen Delivery Me thod Oxygen Flow Rate Fraction of Inspir ed Oxygen 02/14/23 13:15 02/14/23 13:16 02/14/23 13:17 Temperature Pulse Rate 86 93 87 Pulse Rate [Pulse Oximeter] Respiratory Rate Blood Pressure 109/58 L Blood Pressure [Le ft Upper Arm] Pulse Oximetry 97 95 96 Oxygen Delivery Me thod CPAP Oxygen Flow Rate Fraction of Inspir ed Oxygen 30 02/14/23 13:29 02/14/23 13:30 02/14/23 13:32 Temperature 101.0 F H Pulse Rate 88 88 Pulse Rate [Pulse Oximeter] Respiratory Rate Blood Pressure 80/53 L Blood Pressure [Le ft Upper Arm] Pulse Oximetry 97 98 Oxygen Delivery Me thod CPAP CPAP Oxygen Flow Rate Fraction of Inspir ed Oxygen 30 30 02/14/23 13:34 02/14/23 13:45 02/14/23 14:00 Temperature Pulse Rate 83 85 84 Pulse Rate [Pulse Oximeter] Respiratory Rate Blood Pressure 95/60 Blood Pressure [Le ft Upper Arm] Pulse Oximetry 96 95 96 Oxygen Delivery Me thod CPAP CPAP CPAP Oxygen Flow Rate Fraction of Inspir ed Oxygen 30 30 30 02/14/23 14:07 02/14/23 14:15 02/14/23 14:17 Temperature Pulse Rate 93 86 90 Pulse Rate [Pulse Oximeter] Respiratory Rate Blood Pressure 98/57 L 84/49 L Blood Pressure [Le ft Upper Arm] Pulse Oximetry 95 94 95 Oxygen Delivery Me thod CPAP CPAP CPAP Oxygen Flow Rate Fraction of Inspir ed Oxygen 30 30 30 02/14/23 14:19 02/14/23 14:23 02/14/23 14:24 Temperature Pulse Rate 85 88 88 Pulse Rate [Pulse Oximeter] Respiratory Rate Blood Pressure 86/40 L 92/43 L Blood Pressure [Le ft Upper Arm] Pulse Oximetry 95 96 96 Oxygen Delivery Me thod CPAP CPAP CPAP Oxygen Flow Rate Fraction of Inspir ed Oxygen 30 30 30 02/14/23 14:30 02/14/23 14:31 02/14/23 14:45 Temperature Pulse Rate 78 88 83 Pulse Rate [Pulse Oximeter] Respiratory Rate Blood Pressure 76/48 L Blood Pressure [Le ft Upper Arm] Pulse Oximetry 93 95 95 Oxygen Delivery Me thod CPAP CPAP CPAP Oxygen Flow Rate Fraction of Inspir ed Oxygen 30 30 30 02/14/23 14:48 02/14/23 14:51 02/14/23 14:52 Temperature Pulse Rate 49 L 55 L 88 Pulse Rate [Pulse Oximeter] Respiratory Rate Blood Pressure 105/61 88/77 L Blood Pressure [Le ft Upper Arm] Pulse Oximetry 96 95 95 Oxygen Delivery Me thod CPAP CPAP CPAP Oxygen Flow Rate Fraction of Inspir ed Oxygen 30 30 30 02/14/23 14:56 02/14/23 15:01 02/14/23 15:02 Temperature Pulse Rate 50 L 51 L 51 L Pulse Rate [Pulse Oximeter] Respiratory Rate Blood Pressure 112/92 H 112/64 Blood Pressure [Le ft Upper Arm] Pulse Oximetry 95 95 95 Oxygen Delivery Me thod CPAP CPAP CPAP Oxygen Flow Rate Fraction of Inspir ed Oxygen 30 30 30 02/14/23 15:07 02/14/23 15:14 02/14/23 15:15 Temperature 99.1 F Pulse Rate 106 H 51 L Pulse Rate [Pulse Oximeter] Respiratory Rate 26 H Blood Pressure 98/83 120/91 H Blood Pressure [Le ft Upper Arm] Pulse Oximetry 96 96 Oxygen Delivery Me thod CPAP CPAP Oxygen Flow Rate Fraction of Inspir ed Oxygen 30 30 02/14/23 15:16 02/14/23 15:17 02/14/23 15:19 Temperature Pulse Rate 66 71 117 H Pulse Rate [Pulse Oximeter] Respiratory Rate Blood Pressure 142/83 H Blood Pressure [Le ft Upper Arm] Pulse Oximetry 96 94 96 Oxygen Delivery Me thod CPAP CPAP CPAP Oxygen Flow Rate Fraction of Inspir ed Oxygen 30 30 30 02/14/23 15:21 02/14/23 15:22 02/14/23 15:23 Temperature 99.1 F Pulse Rate 140 H 90 Pulse Rate [Pulse Oximeter] Respiratory Rate Blood Pressure 140/81 H Blood Pressure [Le ft Upper Arm] Pulse Oximetry 95 95 Oxygen Delivery Me thod CPAP CPAP Oxygen Flow Rate Fraction of Inspir ed Oxygen 30 30 02/14/23 15:27 02/14/23 15:30 02/14/23 15:32 Temperature Pulse Rate 90 80 53 L Pulse Rate [Pulse Oximeter] Respiratory Rate Blood Pressure 138/80 104/76 Blood Pressure [Le ft Upper Arm] Pulse Oximetry 96 96 97 Oxygen Delivery Me thod CPAP CPAP CPAP Oxygen Flow Rate Fraction of Inspir ed Oxygen 30 30 30 02/14/23 15:36 02/14/23 15:42 02/14/23 15:45 Temperature Pulse Rate 91 83 84 Pulse Rate [Pulse Oximeter] Respiratory Rate Blood Pressure 112/59 L 105/68 Blood Pressure [Le ft Upper Arm] Pulse Oximetry 96 97 96 Oxygen Delivery Me thod CPAP CPAP CPAP Oxygen Flow Rate Fraction of Inspir ed Oxygen 30 30 30 02/14/23 15:46 02/14/23 15:55 02/14/23 15:57 Temperature Pulse Rate 85 82 83 Pulse Rate [Pulse Oximeter] Respiratory Rate Blood Pressure 106/67 99/58 L 102/57 L Blood Pressure [Le ft Upper Arm] Pulse Oximetry 96 97 98 Oxygen Delivery Me thod CPAP CPAP CPAP Oxygen Flow Rate Fraction of Inspir ed Oxygen 30 30 30 02/14/23 16:00 02/14/23 16:02 02/14/23 16:07 Temperature Pulse Rate 85 82 82 Pulse Rate [Pulse Oximeter] Respiratory Rate Blood Pressure 104/65 106/62 Blood Pressure [Le ft Upper Arm] Pulse Oximetry 97 98 96 Oxygen Delivery Me thod CPAP CPAP CPAP Oxygen Flow Rate Fraction of Inspir ed Oxygen 30 30 30 02/14/23 16:12 02/14/23 16:16 02/14/23 16:19 Temperature 97.5 F L Pulse Rate 86 86 Pulse Rate [Pulse Oximeter] Respiratory Rate 28 H Blood Pressure 102/66 Blood Pressure [Le ft Upper Arm] Pulse Oximetry 97 96 96 Oxygen Delivery Me thod CPAP CPAP CPAP Oxygen Flow Rate Fraction of Inspir ed Oxygen 30 30 02/14/23 16:22 02/14/23 16:30 02/14/23 16:31 Temperature Pulse Rate 86 83 83 Pulse Rate [Pulse Oximeter] Respiratory Rate Blood Pressure 107/68 109/65 Blood Pressure [Le ft Upper Arm] Pulse Oximetry 96 96 94 Oxygen Delivery Me thod CPAP CPAP CPAP Oxygen Flow Rate Fraction of Inspir ed Oxygen 30 30 30 <Heraclio Barrios MD - Last Filed: 02/19/23 08:04> Documenting provider has reviewed patient's vital signs: yes <Serge Carpenter MD - Last Filed: 02/23/23 08:07> Course Vital Signs Vital signs: Initial Vital Signs Temperature 100.4 F H 02/14/23 11:03 Temperature Source Temporal Artery Scan 02/14/23 11:03 Pulse Rate 114 H 02/14/23 11:03 Respiratory Rate 40 H 02/14/23 11:03 Blood Pressure 144/106 H 02/14/23 11:03 Blood Pressure Mean 118 H 02/14/23 11:03 Blood Pressure Position High-Fowlers 02/14/23 11:03 Pulse Oximetry 85 L 02/14/23 11:03 Oxygen Delivery Method Room Air, Nasal Cannula, OxyMask 02/14/23 11:03 Oxygen Flow Rate 1 02/14/23 11:03 Vital Signs Temperature 100.4 F H 02/14/23 11:03 Pulse Rate 114 H 02/14/23 11:03 Respiratory Rate 40 H 02/14/23 11:03 Blood Pressure 144/106 H 02/14/23 11:03 Pulse Oximetry 85 L 02/14/23 11:03 Oxygen Delivery Method Room Air, Nasal Cannula, OxyMask 02/14/23 11:03 Oxygen Flow Rate 1 02/14/23 11:03 Temperature 97.5 F L 02/14/23 16:19 Pulse Rate 86 02/14/23 18:03 Respiratory Rate 28 H 02/14/23 16:19 Blood Pressure 112/76 02/14/23 18:03 Pulse Oximetry 97 02/14/23 18:03 Oxygen Delivery Method CPAP 02/14/23 18:03 Oxygen Flow Rate 30 02/14/23 11:56 Fraction of Inspired Oxygen 30 02/14/23 18:03 <Serge Carpenter MD - Last Filed: 02/23/23 08:07> Initial Vital Signs Temperature 100.4 F H 02/14/23 11:03 Temperature Source Temporal Artery Scan 02/14/23 11:03 Pulse Rate 114 H 02/14/23 11:03 Respiratory Rate 40 H 02/14/23 11:03 Blood Pressure 144/106 H 02/14/23 11:03 Blood Pressure Mean 118 H 02/14/23 11:03 Blood Pressure Position High-Fowlers 02/14/23 11:03 Pulse Oximetry 85 L 02/14/23 11:03 Oxygen Delivery Method Room Air, Nasal Cannula, OxyMask 02/14/23 11:03 Oxygen Flow Rate 1 02/14/23 11:03 Vital Signs Temperature 100.4 F H 02/14/23 11:03 Pulse Rate 114 H 02/14/23 11:03 Respiratory Rate 40 H 02/14/23 11:03 Blood Pressure 144/106 H 02/14/23 11:03 Pulse Oximetry 85 L 02/14/23 11:03 Oxygen Delivery Method Room Air, Nasal Cannula, OxyMask 02/14/23 11:03 Oxygen Flow Rate 1 02/14/23 11:03 Temperature 97.5 F L 02/14/23 16:19 Pulse Rate 86 02/14/23 18:03 Respiratory Rate 28 H 02/14/23 16:19 Blood Pressure 112/76 02/14/23 18:03 Pulse Oximetry 97 02/14/23 18:03 Oxygen Delivery Method CPAP 02/14/23 18:03 Oxygen Flow Rate 30 02/14/23 11:56 Fraction of Inspired Oxygen 30 02/14/23 18:03 <Heraclio Barrios MD - Last Filed: 02/19/23 08:04> Medical Decision Making MDM Narrative Medical decision making narrative: Initial presumption of sepsis represented by rigors and hypoxia of unclear source at this time possibly with CHF exacerbation. Will initiate sepsis protocols with concern also pulmonary infection and I think will need to be cautious with fluid resuscitation given history of significant CHF. Respiratory therapy has been involved. Has been maintained on OxyMask with saturations to low 90s. Transitioning to CPAP. Does respond quite well to this with sats very quickly up into mid 90s. Initial lactate at 3.7 Review of chest x-ray complicated by body habitus and portable imaging. One- view chest seems to have diffuse interstitial edema and there is cardiomegaly. Seems more dense than prior comparison. Looks like CHF exacerbation. cannot say that there isn't an underlying infiltrate. Radiology over-read Portable single view examination February 14, 2023 at 11:51 a.m. FINDINGS: TUBES AND LINES: Pacer/AICD. Leads appear to be normally located. HEART AND MEDIASTINUM: Unchanged enlargement of the heart. Sternotomy.. LUNGS AND PLEURAL SPACES: Moderate diffuse vascular, interstitial and alveolar abnormality probably due to pulmonary alveolar and interstitial edema.No significant pleural fluid OSSEOUS STRUCTURES: Age-appropriate appearance. No acute focal finding. IMPRESSION: Enlarged heart. ICD. Findings likely due to interstitial and alveolar pulmonary edema. Venous blood gases appear to show mild respiratory acidosis some CO2 retention compared to prior. After 30 minutes on CPAP on reassessment mentation has clearly improved. Able to easily engage in conversation. No longer tachycardic. Temperature however has come up to 101. Acetaminophen to be given. Will be contacting our hospitalist for admission Blood pressures have softened a little bit. He has received 500 mL bolus of fluids. Spouse seems to recall that compromised blood pressures on prior visit here. Will continue to monitor over the next hour. I am concerned this is more of a cardiac issue, and the fever perhaps more incidental. Still needs treat for sepsis given recent history. 2:43 p.m. Blood pressures have continued to drift down. Last checked 76/48. Will be initiating a norepinephrine. Review of records seems indicate that he responded quite well to this on low doses at last visit. Has become a little diaphoretic. This may be fever breaking or indicative of worsening condition. Looking for transfer to [place]. Calling for ICU bed. [place] without beds. I have contacted [facility] thankfully after discussion with geriatric psychiatrist Dr. Shoemaker there able to accept. Has responded quite well to 0.1 mcg per kg per minute of norepinephrine. Able to decrease to 0.05 mcg with pressures sustained a little over 100/60s Mr. Echeverria is requesting some of his prescribed medication that he missed this morning. <Serge Carpenter MD - Last Filed: 02/23/23 08:07> Initial presumption of sepsis represented by rigors and hypoxia of unclear source at this time possibly with CHF exacerbation. Will initiate sepsis protocols with concern also pulmonary infection and I think will need to be cautious with fluid resuscitation given history of significant CHF. Respiratory therapy has been involved. Has been maintained on OxyMask with saturations to low 90s. Transitioning to CPAP. Does respond quite well to this with sats very quickly up into mid 90s. Initial lactate at 3.7 Review of chest x-ray complicated by body habitus and portable imaging. One- view chest seems to have diffuse interstitial edema and there is cardiomegaly. Seems more dense than prior comparison. Looks like CHF exacerbation. cannot say that there isn't an underlying infiltrate. Radiology over-read Portable single view examination February 14, 2023 at 11:51 a.m. FINDINGS: TUBES AND LINES: Pacer/AICD. Leads appear to be normally located. HEART AND MEDIASTINUM: Unchanged enlargement of the heart. Sternotomy.. LUNGS AND PLEURAL SPACES: Moderate diffuse vascular, interstitial and alveolar abnormality probably due to pulmonary alveolar and interstitial edema.No significant pleural fluid OSSEOUS STRUCTURES: Age-appropriate appearance. No acute focal finding. IMPRESSION: Enlarged heart. ICD. Findings likely due to interstitial and alveolar pulmonary edema. Venous blood gases appear to show mild respiratory acidosis some CO2 retention compared to prior. After 30 minutes on CPAP on reassessment mentation has clearly improved. Able to easily engage in conversation. No longer tachycardic. Temperature however has come up to 101. Acetaminophen to be given. Will be contacting our hospitalist for admission Blood pressures have softened a little bit. He has received 500 mL bolus of fluids. Spouse seems to recall that compromised blood pressures on prior visit here. Will continue to monitor over the next hour. I am concerned this is more of a cardiac issue, and the fever perhaps more incidental. Still needs treat for sepsis given recent history. 2:43 p.m. Blood pressures have continued to drift down. Last checked 76/48. Will be initiating a norepinephrine. Review of records seems indicate that he responded quite well to this on low doses at last visit. Has become a little diaphoretic. This may be fever breaking or indicative of worsening condition. Looking for transfer to [place]. Calling for ICU bed. [place] without beds. I have contacted [facility] thankfully after discussion with geriatric psychiatrist Dr. Navid dupont able to accept. 02/16/2023 intermittently I was added to the patient care document and I was not involved in this patient's care. Has responded quite well to 0.1 mcg per kg per minute of norepinephrine. Able to decrease to 0.05 mcg with pressures sustained a little over 100/60s Mr. Echeverria is requesting some of his prescribed medication that he missed this morning. <Heraclio Barrios MD - Last Filed: 02/19/23 08:04> Lab Data Lab results reviewed: Yes I reviewed the patient's lab results <Serge Carpenter MD - Last Filed: 02/23/23 08:07> Labs: Lab Results 02/14/23 02/14/23 02/14/23 Range/Units 11:33 11:40 11:48 WBC 6.44 (4.50-11.00) K/uL RBC 5.22 (4.30-5.90) m/uL Hgb 15.9 (13.5-17.5) gm/dL Hct 51.6 (37.0-53.0) % MCV 99 (80-100) fL MCH 31 (26-34) pg MCHC 31 L (32-36) gm/dL RDW Coeff of Niles 18.4 H (11.5-15.5) % Plt Count 166 (140-440) K/uL Neut % (Auto) 92.1 H (42.0-72.0) % Lymph % (Auto) 4.8 L (20-44) % Wayne % (Auto) 1.4 (0.0-11.0) % Eos % (Auto) 0.8 (0.0-7.0) % Baso % (Auto) 0.6 (0.0-3.0) % Neut # (Auto) 5.90 (1.7-7.0) K/uL Lymph # (Auto) 0.30 L (0.90-2.90) K/uL Wayne # (Auto) 0.10 (0.00-0.90) K/UL Eos # (Auto) 0.05 (0.00-0.50) K/uL Baso # (Auto) 0.04 (0.00-0.30) K/uL Abs Immat Gran (auto) 0.02 (0.00-0.30) K/uL Imm/Tot Granulo (auto) 0.3 % INR 1.94 H (0.91-1.10) VBG pH 7.327 (7.32-7.43) VBG pCO2 57 H (40-50) mmHG VBG pO2 23.3 L (25-47) mmHG VBG HCO3 30 H (21-28) mmol/L Sodium 140 (135-149) mmol/L Potassium 4.7 (3.6-5.1) mmol/L Chloride 100 (96-114) mmol/L Carbon Dioxide 27 (20-32) mmol/L Anion Gap 13 (7-15) mEq/L BUN 33 H (7-30) mg/dL Creatinine 2.0 H (0.5-1.5) mg/dL Estimated Creat Clear 50.78 Estimated GFR 38 ml/min Glucose 124 H (60-115) mg/dL Lactate 3.7 H (0.5-1.9) mmol/L Calcium 9.5 (8.4-10.6) mg/dL Total Bilirubin 2.3 H (0.1-1.5) mg/dL Direct Bilirubin 0.5 (0.0-0.5) mg/dL AST 35 (12-35) U/L ALT 20 (4-50) U/L Alkaline Phosphatase 118 (40-150) U/L Troponin I 0.05 H (0.01-0.04) ng/mL C-Reactive Protein 2.0 H (0.5-1.0) mg/dL NT-Pro-B Natriuret Pep 4130 pg/mL Total Protein 8.7 H (6.0-8.3) g/dL Albumin 4.8 (3.3-5.0) g/dL Procalcitonin 0.19 (<0.50) ng/mL SARS-CoV-2 (PCR) Negative SARS-CoV-2 (Negative) Influenza Type A (PCR) Negative PCR FLU A (Negative) Influenza Type B (PCR) Negative PCR FLU B (Negative) Lab Acknowledgement POC Troponin I 0.05 H (0.01-0.04) ng/ml 02/14/23 02/14/23 02/14/23 Range/Units 12:18 12:36 14:47 WBC (4.50-11.00) K/uL RBC (4.30-5.90) m/uL Hgb (13.5-17.5) gm/dL Hct (37.0-53.0) % MCV (80-100) fL MCH (26-34) pg MCHC (32-36) gm/dL RDW Coeff of Niles (11.5-15.5) % Plt Count (140-440) K/uL Neut % (Auto) (42.0-72.0) % Lymph % (Auto) (20-44) % Wayne % (Auto) (0.0-11.0) % Eos % (Auto) (0.0-7.0) % Baso % (Auto) (0.0-3.0) % Neut # (Auto) (1.7-7.0) K/uL Lymph # (Auto) (0.90-2.90) K/uL Wayne # (Auto) (0.00-0.90) K/UL Eos # (Auto) (0.00-0.50) K/uL Baso # (Auto) (0.00-0.30) K/uL Abs Immat Gran (auto) (0.00-0.30) K/uL Imm/Tot Granulo (auto) % INR (0.91-1.10) VBG pH (7.32-7.43) VBG pCO2 (40-50) mmHG VBG pO2 (25-47) mmHG VBG HCO3 (21-28) mmol/L Sodium (135-149) mmol/L Potassium (3.6-5.1) mmol/L Chloride (96-114) mmol/L Carbon Dioxide (20-32) mmol/L Anion Gap (7-15) mEq/L BUN (7-30) mg/dL Creatinine (0.5-1.5) mg/dL Estimated Creat Clear Estimated GFR ml/min Glucose (60-115) mg/dL Lactate (0.5-1.9) mmol/L Calcium (8.4-10.6) mg/dL Total Bilirubin (0.1-1.5) mg/dL Direct Bilirubin (0.0-0.5) mg/dL AST (12-35) U/L ALT (4-50) U/L Alkaline Phosphatase (40-150) U/L Troponin I (0.01-0.04) ng/mL C-Reactive Protein (0.5-1.0) mg/dL NT-Pro-B Natriuret Pep pg/mL Total Protein (6.0-8.3) g/dL Albumin (3.3-5.0) g/dL Procalcitonin (<0.50) ng/mL SARS-CoV-2 (PCR) (Negative) Influenza Type A (PCR) (Negative) Influenza Type B (PCR) (Negative) Lab Acknowledgement Test Added Test Added POC Troponin I 0.08 H (0.01-0.04) ng/ml <Serge Carpenter MD - Last Filed: 02/23/23 08:07> Lab Results 02/14/23 02/14/23 02/14/23 Range/Units 11:33 11:40 11:48 WBC 6.44 (4.50-11.00) K/uL RBC 5.22 (4.30-5.90) m/uL Hgb 15.9 (13.5-17.5) gm/dL Hct 51.6 (37.0-53.0) % MCV 99 (80-100) fL MCH 31 (26-34) pg MCHC 31 L (32-36) gm/dL RDW Coeff of Niles 18.4 H (11.5-15.5) % Plt Count 166 (140-440) K/uL Neut % (Auto) 92.1 H (42.0-72.0) % Lymph % (Auto) 4.8 L (20-44) % Wayne % (Auto) 1.4 (0.0-11.0) % Eos % (Auto) 0.8 (0.0-7.0) % Baso % (Auto) 0.6 (0.0-3.0) % Neut # (Auto) 5.90 (1.7-7.0) K/uL Lymph # (Auto) 0.30 L (0.90-2.90) K/uL Wayne # (Auto) 0.10 (0.00-0.90) K/UL Eos # (Auto) 0.05 (0.00-0.50) K/uL Baso # (Auto) 0.04 (0.00-0.30) K/uL Abs Immat Gran (auto) 0.02 (0.00-0.30) K/uL Imm/Tot Granulo (auto) 0.3 % INR 1.94 H (0.91-1.10) VBG pH 7.327 (7.32-7.43) VBG pCO2 57 H (40-50) mmHG VBG pO2 23.3 L (25-47) mmHG VBG HCO3 30 H (21-28) mmol/L Sodium 140 (135-149) mmol/L Potassium 4.7 (3.6-5.1) mmol/L Chloride 100 (96-114) mmol/L Carbon Dioxide 27 (20-32) mmol/L Anion Gap 13 (7-15) mEq/L BUN 33 H (7-30) mg/dL Creatinine 2.0 H (0.5-1.5) mg/dL Estimated Creat Clear 50.78 Estimated GFR 38 ml/min Glucose 124 H (60-115) mg/dL Lactate 3.7 H (0.5-1.9) mmol/L Calcium 9.5 (8.4-10.6) mg/dL Total Bilirubin 2.3 H (0.1-1.5) mg/dL Direct Bilirubin 0.5 (0.0-0.5) mg/dL AST 35 (12-35) U/L ALT 20 (4-50) U/L Alkaline Phosphatase 118 (40-150) U/L Troponin I 0.05 H (0.01-0.04) ng/mL C-Reactive Protein 2.0 H (0.5-1.0) mg/dL NT-Pro-B Natriuret Pep 4130 pg/mL Total Protein 8.7 H (6.0-8.3) g/dL Albumin 4.8 (3.3-5.0) g/dL Procalcitonin 0.19 (<0.50) ng/mL SARS-CoV-2 (PCR) Negative SARS-CoV-2 (Negative) Influenza Type A (PCR) Negative PCR FLU A (Negative) Influenza Type B (PCR) Negative PCR FLU B (Negative) Lab Acknowledgement POC Troponin I 0.05 H (0.01-0.04) ng/ml 02/14/23 02/14/23 02/14/23 Range/Units 12:18 12:36 14:47 WBC (4.50-11.00) K/uL RBC (4.30-5.90) m/uL Hgb (13.5-17.5) gm/dL Hct (37.0-53.0) % MCV (80-100) fL MCH (26-34) pg MCHC (32-36) gm/dL RDW Coeff of Niles (11.5-15.5) % Plt Count (140-440) K/uL Neut % (Auto) (42.0-72.0) % Lymph % (Auto) (20-44) % Wayne % (Auto) (0.0-11.0) % Eos % (Auto) (0.0-7.0) % Baso % (Auto) (0.0-3.0) % Neut # (Auto) (1.7-7.0) K/uL Lymph # (Auto) (0.90-2.90) K/uL Wayne # (Auto) (0.00-0.90) K/UL Eos # (Auto) (0.00-0.50) K/uL Baso # (Auto) (0.00-0.30) K/uL Abs Immat Gran (auto) (0.00-0.30) K/uL Imm/Tot Granulo (auto) % INR (0.91-1.10) VBG pH (7.32-7.43) VBG pCO2 (40-50) mmHG VBG pO2 (25-47) mmHG VBG HCO3 (21-28) mmol/L Sodium (135-149) mmol/L Potassium (3.6-5.1) mmol/L Chloride (96-114) mmol/L Carbon Dioxide (20-32) mmol/L Anion Gap (7-15) mEq/L BUN (7-30) mg/dL Creatinine (0.5-1.5) mg/dL Estimated Creat Clear Estimated GFR ml/min Glucose (60-115) mg/dL Lactate (0.5-1.9) mmol/L Calcium (8.4-10.6) mg/dL Total Bilirubin (0.1-1.5) mg/dL Direct Bilirubin (0.0-0.5) mg/dL AST (12-35) U/L ALT (4-50) U/L Alkaline Phosphatase (40-150) U/L Troponin I (0.01-0.04) ng/mL C-Reactive Protein (0.5-1.0) mg/dL NT-Pro-B Natriuret Pep pg/mL Total Protein (6.0-8.3) g/dL Albumin (3.3-5.0) g/dL Procalcitonin (<0.50) ng/mL SARS-CoV-2 (PCR) (Negative) Influenza Type A (PCR) (Negative) Influenza Type B (PCR) (Negative) Lab Acknowledgement Test Added Test Added POC Troponin I 0.08 H (0.01-0.04) ng/ml <Heraclio Barrios MD - Last Filed: 02/19/23 08:04> ECG Data Attestation: I personally reviewed and interpreted this ECG as follows: (Paced rhythm at 116. Significant baseline irritability presumably due to rigors) <Serge Carpenter MD - Last Filed: 02/23/23 08:07> Critical Care Time Critical Care Time Critical Care Time: Yes Attestation: The patient required my highest level preparedness to intervene emergently and I personally spent this critical care time directly and personally managing the patient. This critical care time included: Obtaining a history; Examining the patient; Pulse oximetry; Ordering and reviewing of studies; Arranging urgent treatment with development of a management plan; Evaluation of patients response to treatment; Frequent reassessment discussions with other providers. This critical care time was performed to assess and manage the high probability of imminent life-threatening deterioration that could result in multiorgan jacob lure. It was exclusive of separate billable procedures and treating other patients and teaching time. <Serge Carpenter MD - Last Filed: 02/23/23 08:07> Total Critical Care Time in Minutes: 80 <Serge Carpenter MD - Last Filed: 02/23/23 08:07> 0 <Heraclio Barrios MD - Last Filed: 02/19/23 08:04> Discharge Plan Discharge Clinical Impression: Respiratory failure, Sepsis <Serge Carpenter MD - Last Filed: 02/23/23 08:07> [facility] <Serge Carpenter MD - Last Filed: 02/23/23 08:07> Discharge Location: [facility] <Serge Carpenter MD - Last Filed: 02/23/23 08:07> Condition: Critical <Serge Carpenter MD - Last Filed: 02/23/23 08:07>
--- NOTE | 2023-02-14 11:39 | CRLHL7_ITS ---
For Patients: As a result of the Century Cures Act, medical imaging exams and procedure reports are released immediately into your electronic medical record. You may view this report before your referring provider. If you have questions, please contact your health care provider. INDICATION: Dyspnea COMPARISON: December 27, 2022 TECHNIQUE: Portable single view examination February 14, 2023 at 11:51 a.m. FINDINGS: TUBES AND LINES: Pacer/AICD. Leads appear to be normally located. HEART AND MEDIASTINUM: Unchanged enlargement of the heart. Sternotomy.. LUNGS AND PLEURAL SPACES: Moderate diffuse vascular, interstitial and alveolar abnormality probably due to pulmonary alveolar and interstitial edema.No significant pleural fluid OSSEOUS STRUCTURES: Age-appropriate appearance. No acute focal finding. IMPRESSION: Enlarged heart. ICD. Findings likely due to interstitial and alveolar pulmonary edema. Dictated by Bao Oliva MD @ 02/14/2023 12:43:50 PM (Electronically Signed)
[2023-02-14 11:47] LABS: Troponin, Point-of-Care* 0.05 ng/ml (0.01-0.04)
[2023-02-14 11:48] LABS: Lactate* 3.7 mmol/L (0.5-1.9)
[2023-02-14 11:50] LABS: Basophils Absolute Auto 0.04 K/uL (0.00-0.30); Basophils Percent Auto 0.6 % (0.0-3.0); Eosinophils Absolute Auto 0.05 K/uL (0.00-0.50); Eosinophils Percent Auto 0.8 % (0.0-7.0); Hematocrit 51.6 % (37.0-53.0); Hemoglobin* 15.9 gm/dL (13.5-17.5); Immature Granulocytes Abs Auto 0.02 K/uL (0.00-0.30); Immature Granulocytes Pct Auto 0.3 %; Lymphocytes Percent Auto 4.8 % (20-44); Mean Corpuscular HGB Conc 31 gm/dL (32-36); Mean Corpuscular Hemoglobin 31 pg (26-34); Mean Corpuscular Volume 99 fL (80-100); Monocytes Percent Auto 1.4 % (0.0-11.0); Neutrophils Percent Auto 92.1 % (42.0-72.0); Platelet Count* 166 K/uL (140-440); RDW Coefficient of Variation % 18.4 % (11.5-15.5); Red Blood Count 5.22 m/uL (4.30-5.90); White Blood Count* 6.44 K/uL (4.50-11.00)
[2023-02-14 11:53] LABS: Slide Review Reflex No
[2023-02-14 12:12] LABS: INR 1.94 (0.91-1.10); Prothrombin Time 23.2 Seconds
[2023-02-14] MEDS: 0.9 % SODIUM CHLORIDE 1000 ml 1,000 ML 1200 ML IV (12:13)
[2023-02-14 12:31] LABS: Albumin* 4.8 g/dL (3.3-5.0); HCO3 VBG 30 mmol/L (21-28); PCO2 VBG 57 mmHG (40-50); PO2 VBG 23.3 mmHG (25-47); pH VBG 7.327 (7.32-7.43)
[2023-02-14 12:32] LABS: Chloride* 100 mmol/L (96-114); Potassium* 4.7 mmol/L (3.6-5.1); Sodium* 140 mmol/L (135-149)
[2023-02-14 12:34] LABS: Alkaline Phosphatase* 118 U/L (40-150); Aspartate Amino Transferase* 35 U/L (12-35); Bilirubin Direct* 0.5 mg/dL (0.0-0.5); Bilirubin Total* 2.3 mg/dL (0.1-1.5); Total Protein* 8.7 g/dL (6.0-8.3)
[2023-02-14 12:35] LABS: Alanine Aminotransferase* 20 U/L (4-50); Est. Creatinine Clearance* 50.78; Estimated Glomerular Filt Rate 38 ml/min
[2023-02-14 12:36] LABS: Anion Gap 13 mEq/L (7-15); Blood Urea Nitrogen* 33 mg/dL (7-30); Calcium* 9.5 mg/dL (8.4-10.6); Carbon Dioxide* 27 mmol/L (20-32); Glucose* 124 mg/dL (60-115)
[2023-02-14 12:44] LABS: NT Pro B Type NatriureticPept* 4130 pg/mL
[2023-02-14 12:46] LABS: Troponin I* 0.05 ng/mL (0.01-0.04)
[2023-02-14 12:47] LABS: PCR FLU A Negative PCR FLU A (Negative); PCR FLU B Negative PCR FLU B (Negative)
[2023-02-14 12:48] LABS: SARS PCR* Negative SARS-CoV-2 (Negative)
[2023-02-14] MEDS: PIPERACILLIN/TAZOBACTAM 4.5 GM in 0.9 % SODIUM CHLORIDE Mini-bag 100 ML IVPB (13:14)
[2023-02-14 13:18] LABS: Procalcitonin* 0.19 ng/mL (<0.50)
[2023-02-14] MEDS: levoFLOXacin 250 MG TABLET 750 MG PO (13:21)
[2023-02-14] MEDS: ACETAMINOPHEN 500 MG TABLET 1000 MG PO (13:40)
--- NOTE | 2023-02-14 14:15 | ED.NURSE ---
bed visibility soiled, cleaned pt, applied new hospital brief bed linens changed
[2023-02-14 14:48] LABS: Troponin, Point-of-Care* 0.08 ng/ml (0.01-0.04)
--- NOTE | 2023-02-14 16:41 | ED.NURSE ---
Nurse to nurse report given to [facility] going to room [id number] Bed 1
--- NOTE | 2023-02-14 16:41 | ED.NURSE ---
Dispatch paged for transport, no ETA at this time, only one truck
[2023-02-14] MEDS: PREGABALIN 100 MG CAPSULE 300 MG PO (16:55)
[2023-02-14] MEDS: buPROPion XL 150 MG TABLET PO (16:58)
[2023-02-14] MEDS: VENLAFAXINE ER 75 MG CAPSULE PO (16:58)
--- NOTE | 2023-02-15 02:14 | ED.NURSE ---
1st set of blood cultures positive. gram negative rods in both anaerobic and aerobic bottles. gave verbal report to Bert PATEL at [facility] where patient was transferred. faxed sheet to [facility] [phone].
--- NOTE | 2023-02-15 02:43 | ED.NURSE ---
2nd set of blood culture came back positive. gram negative adrianne. report given to Bert PATEL at [facility] where pt. was transferred too. information faxed also
== END 2023-02-14 18:25 | disposition short-term general hospital (02) ==
PROVIDERS: Emergency Provider Family Medicine; PCP Family Medicine
DX: J96.00 Acute respiratory failure, unspecified whether with hypoxia or hypercapnia (principal)
CPT/HCPCS: 36415; 71045; 80048; 80076; 81001; 82803; 83605; 83880; 84145; 84484; 85025; 85610; 86140; 87040; 87186; 87631; 93005; 94660; 94761; 96365; 96366; 99284; 99285; 99291; A9270; J2543; J3370; J7030; J7120